=== PATIENT | male | born 1980 | race Two or more races ===

== ENCOUNTER 2019-12-31 17:30 | Inpatient (IN) | payer MEDICAID ==
[~2019-12-31] VITALS: Ht 177.8 cm; Wt 125.9 kg
--- NOTE | ~2019-12-31 | OP ---
PATIENT NAME: SOCORRO CHRISTENSEN MEDICAL RECORD: [id number] :78 LOCATION:[facility]1215 ADMISSION DATE:12/31/19 SURGEON: IRWIN HAAS MD DATE OF OPERATION: 01/08/2020 PREOPERATIVE DIAGNOSES: 1. Jaundice. 2. Gallstone pancreatitis. 3. Diabetes mellitus. POSTOPERATIVE DIAGNOSES: 1. Jaundice. 2. Gallstone pancreatitis. 3. Diabetes mellitus. PROCEDURES: 1. Laparoscopic cholecystectomy with intraoperative cholangiogram. 2. Fluoroscopic interpretation. SURGEON: Irwin Haas MD REPORT OF PROCEDURE: The patient's abdomen was prepped and draped in sterile fashion. A cutdown was made on the superior aspect of the umbilicus, 0 Vicryls were placed in the fascia bilaterally and the fascia was incised with 15-blade. I then bluntly entered the peritoneal cavity and placed a 12-mm Octavia port. Under direct visualization, a 5 mm trocar was placed in the epigastrium and 2 more 5-mm trocars were placed in the right subcostal region. The gallbladder was grasped and elevated. It was noted to be inflamed and swollen, so a needle was placed into the gallbladder to take out some of its contents. There was bilious return of fluid. This took down the pressure on the gallbladder and made it more easily graspable. The cystic artery and cystic duct were dissected free. The cystic artery was clipped proximally and distally and ligated in standard fashion. The cystic duct was then dissected free and we were able to place clips proximally times 2 and made a small cystotomy. There was return of some bilious fluid. We then inserted a cook cholangiocath through the abdominal wall and into the distal aspect of the cystic duct. A cholangiogram was performed and it showed what appeared to be 2 small filling defects in the distal common bile duct. I could not get flow of contrast into the duodenum. There was good backfilling of the ducts into the liver and all of the ductal system appeared to be small in caliber with no sign of any dilatation. We then pulled out the cholangiocatheter and upon doing this, 2 stones came out of the cystotomy. I then manipulated the tissues around her some more and got some more of the contrast and fluid out of the cystic duct with no other stones were noted. We then clipped the cystic duct 3 times distally and ligated in standard fashion. There was another arterial branch, which was clipped and cut. The gallbladder was then taken off the liver bed using electrocautery and placed into an Endo Catch bag. The right upper quadrant was irrigated out and care was taken to assure there was no sign of any bleeding or bile leakage. At this point, the ports and insufflation were then removed and the gallbladder was taken out through the umbilicus. The umbilical fascia was closed with interrupted 0 Vicryls times 3. The wounds were then irrigated out with normal saline and infused with 10 mL of 0.25% Marcaine with epinephrine. The skin incisions were all closed with subcutaneous 5-0 Monocryl and dressed appropriately. OPERATIVE REPORT [id number] SOCORRO CHRISTENSEN COMPLICATIONS: None. CONDITION: Stable. ANESTHESIA: General endotracheal and local. BLOOD LOSS: 30 mL. TRANSINT:[id number] Voice Confirmation ID: [id number] DOCUMENT ID: [id number] IRWIN HAAS MD CC: [id number] DICTATION DATE: 01/08/20913 FLARE STITCHER: 01/08/20 1120 ADM IN [place] [id number] [place] [address]
[2019-12-31 18:25] LABS: BASOPHILS 0.1 % (0-2); EOSINOPHILS 0.1 % (0-7); HEMATOCRIT 47.2 % (42.0-54.0); HEMOGLOBIN 18.2 g/dL (13.5-17.5); IMMATURE GRANULOCYTES 0.6 % (0-5); LYMPHOCYTES 10.5 % (15-50); MCHC 38.6 g/dL (31.0-37.0); MEAN PLATELET VOLUME 9.6 fL (7.4-10.4); MONOCYTES 6.8 % (2-11); NEUTROPHILS 81.9 % (40-80); PLATELET COUNT 349 10x3/uL (130-400); RBC 5.69 10x6/uL (4.20-6.10); RDW 13.5 % (11.5-14.5); WBC 17.2 10x3/uL (4.8-10.8)
[2019-12-31 19:07] LABS: APPEARANCE CLEAR (CLEAR); COLOR YELLOW (YELLOW)
[2019-12-31 19:08] LABS: BILIRUBIN NEGATIVE (NEGATIVE); GLUCOSE 1000 mg/dL (NEGATIVE); KETONE LARGE mg/dL (NEGATIVE); NITRITE NEGATIVE (NEGATIVE); PROTEIN 1+ mg/dL (NEGATIVE); UROBILINOGEN NORMAL (NORMAL)
[2019-12-31 19:09] LABS: BACTERIA FEW /hpf (NEGATIVE); RED CELLS - URINE 0-5 /hpf (0-5); WHITE CELLS - URINE OCC /hpf (NEGATIVE)
[2019-12-31 19:10] LABS: YEAST RARE /hpf (NONE SEEN)
[2019-12-31 19:18] LABS: CALC OSMOLALITY 289 mosm/kg (275-300); CREATININE - SERUM 0.8 mg/dL (0.6-1.3); GLUCOSE 376 mg/dL (74-106); LIPASE 10297 U/L (73-393); SODIUM 138 mmol/L (136-145); UREA NITROGEN 11 mg/dL (7-18); eGFR NON AFRICAN AMERICAN > 90 mL/min (90-120)
[2019-12-31 19:19] LABS: ALKALINE PHOSPHATASE 137 U/L (30-120); ALT (SGPT) 46 U/L (10-68); CARBON DIOXIDE 29.5 mmol/L (21.0-32.0); CHLORIDE - SERUM 97 mmol/L (98-107)
[2019-12-31 19:20] LABS: ALBUMIN 3.6 g/dL (3.4-5.0); BILIRUBIN - TOTAL 0.53 mg/dL (0.2-1.3); PROTEIN - SERUM 6.6 g/dL (6.4-8.2)
[2019-12-31 19:23] LABS: AMYLASE - SERUM 1349 U/L (25-115)
[2019-12-31 19:24] LABS: CALCIUM 6.7 mg/dL (8.5-10.1)
--- NOTE | 2019-12-31 21:32 | NUR ---
PT CHANGED INTO GOWN AT THIS TIME.
[2019-12-31 21:54] VITALS: BP 106/6
[2019-12-31 22:30] VITALS: BP 111/71
[2019-12-31 22:39] LABS: APTT 28.4 SECONDS (22.8-39.4); INR 0.92 (0.85-1.17); PROTIME 12.3 SECONDS (11.6-15.0)
[2019-12-31 23:29] LABS: HEMATOCRIT 48.6 % (42.0-54.0); HEMOGLOBIN 17.6 g/dL (13.5-17.5); MCH 29.6 pg (26.0-34.0); MCHC 36.2 g/dL (31.0-37.0); MCV 81.8 fL (80.0-100.0); MEAN PLATELET VOLUME 9.1 fL (7.4-10.4); RBC 5.94 10x6/uL (4.20-6.10); WBC 13.6 10x3/uL (4.8-10.8)
--- NOTE | 2019-12-31 23:42 | NUR ---
SODA AND JELLO PROVIDED AT THIS TIME. NO SIGNS DISTRESS. PT DENIES FURTHER NEEDS. WILL CONTINUE TO MONITOR.
[2020-01-01] VITALS (9 sets, daily range): BP systolic 113–142; BP diastolic 42–83; Ht 177.8 cm; Wt 125.9 kg
--- NOTE | 2020-01-01 00:26 | NUR ---
ARIVES VIA STRETCHER WITH INTERPRITUR HEPRIN GTT HAS BEEN STARTED IN ER 2BOLUS OF FLUIDS IS GOING BED LOW AND SRX2 CALL LIGHT WITH PT
--- NOTE | 2020-01-01 01:01 | NUR ---
NOTED ORDERS PT REFUSED SCD AND PT DOES NOT MEET CRITERIA FOR WAGONER CATH PT IS AMBLITORY
--- NOTE | 2020-01-01 07:24 | NUR ---
APTT REDRAW WAS NOT ORDERED AND WAS DUE AT 0540. ORDERED APTT FOR NOW. WILL CHANGE HEPARIN DRIP ACCORDING TO RESULTS. CALLED AND SPOKE WITH LAB TO SEE IF THEY CAN ADD APTT TO MORNING LABS THAT WERE DRAWN AND THEY TSTAED THEY COULD. WILL AWAIT RESULTS.
--- NOTE | 2020-01-01 08:01 | NUR ---
PT GOT UP TO BATHROOM AND HR JUMPED TO 160.
--- NOTE | 2020-01-01 08:26 | NUR ---
APTT 45.3. INCREASED HEPARIN DRIP BY 100 UNITS PER HEPARIN FLOWSHEET. HEPARIN NOW INFUSING AT 1400UNITS/HR. WILL ORDER APTT RDRAW FOR IN 6 HOURS.
--- NOTE | 2020-01-01 08:26 | NUR ---
APTT 45.3. INCREASED HEPARIN DRIP BY 100 UNITS PER HEPARIN FLOWSHEET. HEPARIN NOW INFUSING AT 1400UNITS/HR. WILL ORDER APTT RDRAW FOR IN 6 HOURS.
[2020-01-01 09:56] LABS: MAGNESIUM - SERUM 1.7 mg/dL (1.8-2.4)
[2020-01-01 09:57] LABS: CALC OSMOLALITY 295 mosm/kg (275-300); CREATININE - SERUM 0.8 mg/dL (0.6-1.3); PHOSPHOROUS 2.6 mg/dL (2.5-4.9); SODIUM 136 mmol/L (136-145); UREA NITROGEN 10 mg/dL (7-18); eGFR NON AFRICAN AMERICAN > 90 mL/min (90-120)
[2020-01-01 09:58] LABS: CARBON DIOXIDE 15.6 mmol/L (21.0-32.0); CHLORIDE - SERUM 102 mmol/L (98-107); POTASSIUM - SERUM 4.2 mmol/L (3.5-5.1)
[2020-01-01 09:59] LABS: ALBUMIN 2.8 g/dL (3.4-5.0); ALKALINE PHOSPHATASE 102 U/L (30-120); ALT (SGPT) 32 U/L (10-68); CHOL - HDL RATIO 12.4 ratio (2.3-4.9); CHOLESTEROL, TOTAL 448 mg/dL (0-200); HDL CHOLESTEROL 36 mg/dL (32-96); PROTEIN - SERUM 5.8 g/dL (6.4-8.2); TRIGLYCERIDE 4621 mg/dL (30-200)
[2020-01-01 10:07] LABS: CALCIUM 5.4 mg/dL (8.5-10.1); GLUCOSE 557 mg/dL (74-106); LIPASE 7566 U/L (73-393)
--- NOTE | 2020-01-01 10:14 | NUR ---
SPOKE WITH JOEL MARTINEZ ABOUT PT'S BS BEING SO HIGH AND BEING ON A LOW SLIDING SCALE SHE STATES TO INCREASE TO INTERMEDIATE. I ALSO STATED TO HER PT IS SINUS TACH ON THE MONITOR AND SHOT UP TO 160. SHE VERBALIZED UNDERSTANDING.
[2020-01-01 11:34] LABS: BASOPHILS 0.1 % (0-2); EOSINOPHILS 0 % (0-7); HEMATOCRIT 50.8 % (42.0-54.0); IMMATURE GRANULOCYTES 0.4 % (0-5); LYMPHOCYTES 17.4 % (15-50); MCV 83.1 fL (80.0-100.0); MEAN PLATELET VOLUME 10.8 fL (7.4-10.4); MONOCYTES 4.5 % (2-11); NEUTROPHILS 77.6 % (40-80); PLATELET COUNT 379 10x3/uL (130-400); RBC 6.11 10x6/uL (4.20-6.10); RDW 14.7 % (11.5-14.5); WBC 11.2 10x3/uL (4.8-10.8)
[2020-01-01 11:36] LABS: HEMOGLOBIN 16.6 g/dL (13.5-17.5); MCH 27.1 pg (26.0-34.0); MCHC 32.6 g/dL (31.0-37.0)
--- NOTE | 2020-01-01 13:37 | NUR ---
CALLED AND SPOKE WITH PHARMACY THEY STATE CALCIUM CHLORIDE THEY WILL HAVE TO MIX AND THEY WILL GET IT UP TO ME WHEN THEY GET IT READY. I VERBALIZED UNDERSTANDING.
--- NOTE | 2020-01-01 14:01 | NUR ---
[employer] DIABETIC SELF MANAGEMENT BOOKLET GIVEN TO PT BY TUCK POINTER HELPER.
--- NOTE | 2020-01-01 14:11 | NUR ---
PT HAD LUNCH AND IS NOT NPO. WILL DO EARLY AM. PLEASE HOLD PT NPO AFTER MIDNIGHT. LISE LIVE
[2020-01-01 14:49] LABS: APTT 39.6 SECONDS (22.8-39.4)
[2020-01-01 14:50] LABS: D-DIMER-QUANTITATIVE 2.22 ug/mLFEU (0.20-0.54)
--- NOTE | 2020-01-01 15:15 | NUR ---
APTT 39.6. PER HEPARIN FLOWSHEET GAVE 3000 UNITS BOLUS OF HEPARIN AND INCREASED 200 UNITS/HR. HERPAIN DRIP NOW INFUSING AT 1600 UNITS/HR. PT LYING IN BED. RESTING QUIETLY. FAMILY AT BEDSIDE. PT HAS NO FURTHER NEEDS AT THIS TIME. BED LOW. CL IN REACH. WILL CONTINUE TO MONITOR.
--- NOTE | 2020-01-01 15:51 | NUR ---
DR. HAAS STATES PT IS TO REMAIN NPO BUT CAN HAVE ICE CHIPS. I VERBALIZED UNDERSTANDING NAD STATED THIS TO PT'S SON WHO TRASNLATED TO PT. PT AND PT'S SON VERBALIZED UNDERSTANDING.
--- NOTE | 2020-01-01 16:16 | NUR ---
I have reviewed this patient and I concur with the Shift Assessment completed by the Licensed Practical Nurse today this shift.
[2020-01-01 18:03] LABS: TROPONIN-I 0.036 ng/mL (0.000-0.060)
[2020-01-01 18:04] LABS: CKMB 15.6 U/L (0.0-3.6); CREATINE KINASE 59 UL (21-232)
--- NOTE | 2020-01-01 19:47 | NUR ---
REPORT RECIEVED AND ROUNDING COMPLETE. PATIENT LAYING FLAT ON LEFT SIDE, SONS IN THE ROOM. PATIENT DOES NOT SPEAK SERBIAN, PATIENT HAS SONS IN ROOM FOR COMMUNICATION. JANEEN UNDERSTANDS HE IS TO BE NPO AFTER MIDNIGHT FOR ABD ULTRASOUND IN THE MORNING. PATIENT HAS A LEFT AC WITH FLUIDS RUNNING AT THIS TIME. PIV SHOWS NO S/SX OF INFILTRATION. PATINET SHOWS NO S/SX OF DISTRESS AT THIS TIME. CALL LIGHT WIHTIN REACH AND BED IN LOWEST LOCKED POSITION.
[2020-01-01 20:35] LABS: CHLORIDE - SERUM 103 mmol/L (98-107); POTASSIUM - SERUM 4.1 mmol/L (3.5-5.1); SODIUM 134 mmol/L (136-145); eGFR NON AFRICAN AMERICAN 88 mL/min (90-120)
[2020-01-01 20:37] LABS: CALC OSMOLALITY 290 mosm/kg (275-300); CALCIUM 7.1 mg/dL (8.5-10.1); CARBON DIOXIDE 20.7 mmol/L (21.0-32.0); GLUCOSE 496 mg/dL (74-106); UREA NITROGEN 14 mg/dL (7-18)
[2020-01-01 20:44] LABS: CKMB 0.1 U/L (0.0-3.6); CREATINE KINASE 109 UL (21-232)
[2020-01-01 20:45] LABS: TROPONIN-I < 0.017 ng/mL (0.000-0.060)
[2020-01-01 20:49] LABS: KETONE - SERUM NEGATIVE (NEGATIVE)
--- NOTE | 2020-01-01 21:55 | NUR ---
PT RECIEVED VIA BED, AMBULATES TO BED WITHOUT ASSIST, SPEAKS ETHIOPIAN, FRIEND PRESENT TO TRANSLATE, ASSESSMENT COMPLETED
--- NOTE | 2020-01-01 22:05 | NUR ---
IV STARTED IN RIGHT FOREARM, INITIATED INSULIN GTT
[2020-01-02] VITALS (24 sets, daily range): BP systolic 101–131; BP diastolic 56–79
--- NOTE | 2020-01-02 00:10 | NUR ---
PT SLEEPING, REMAINS TACHYCARDIC AND TACHYPNIC, WILL CONT TO MONITOR, FSBS Q1HR
--- NOTE | 2020-01-02 02:00 | NUR ---
PT SLEEPING WITH NO CHANGE IN STATUS, BLOOD DRAWN BY LAB
[2020-01-02 02:42] LABS: CALC OSMOLALITY 288 mosm/kg (275-300); CALCIUM 7.3 mg/dL (8.5-10.1); CARBON DIOXIDE 20.4 mmol/L (21.0-32.0); CHLORIDE - SERUM 108 mmol/L (98-107); CKMB 0.3 U/L (0.0-3.6); CREATINE KINASE 55 UL (21-232); CREATININE - SERUM 1.1 mg/dL (0.6-1.3); GLUCOSE 314 mg/dL (74-106); MAGNESIUM - SERUM 2.4 mg/dL (1.8-2.4); POTASSIUM - SERUM 3.5 mmol/L (3.5-5.1); SODIUM 138 mmol/L (136-145); TROPONIN-I < 0.017 ng/mL (0.000-0.060); UREA NITROGEN 15 mg/dL (7-18); eGFR NON AFRICAN AMERICAN 79 mL/min (90-120)
--- NOTE | 2020-01-02 05:30 | NUR ---
PT UP TO BATHROOM WITH MIN ASSIST, BM X1, REMAINS TACHYCARDIC, SON PRESENT IN ROOM
[2020-01-02 06:01] LABS: BASOPHILS 0.1 % (0-2); EOSINOPHILS 0.2 % (0-7); HEMATOCRIT 47.2 % (42.0-54.0); HEMOGLOBIN 16.1 g/dL (13.5-17.5); IMMATURE GRANULOCYTES 0.5 % (0-5); LYMPHOCYTES 33.9 % (15-50); MCH 28.4 pg (26.0-34.0); MCHC 34.1 g/dL (31.0-37.0); MCV 83.4 fL (80.0-100.0); MEAN PLATELET VOLUME 9.7 fL (7.4-10.4); MONOCYTES 4.2 % (2-11); NEUTROPHILS 61.1 % (40-80); RBC 5.66 10x6/uL (4.20-6.10); RDW 14.8 % (11.5-14.5); WBC 8.8 10x3/uL (4.8-10.8)
[2020-01-02 06:17] LABS: PLATELET COUNT 287 10x3/uL (130-400)
[2020-01-02 06:22] LABS: ANION GAP 12.1 mmol/L (8-16); BILIRUBIN - TOTAL 0.79 mg/dL (0.2-1.3); CALCIUM 7.7 mg/dL (8.5-10.1); CARBON DIOXIDE 21.5 mmol/L (21.0-32.0); CREATININE - SERUM 1.2 mg/dL (0.6-1.3); MAGNESIUM - SERUM 2.6 mg/dL (1.8-2.4); POTASSIUM - SERUM 3.6 mmol/L (3.5-5.1); PROTEIN - SERUM 6.6 g/dL (6.4-8.2)
[2020-01-02 06:23] LABS: ALBUMIN 2.2 g/dL (3.4-5.0); PHOSPHOROUS 1.9 mg/dL (2.5-4.9)
--- NOTE | 2020-01-02 07:54 | NUR ---
PT RESTING QUIETLY, DOMINICAN SPEAKING SON AT BS. INSULIN GTT PER SSI. HEP GTT PER SS HEP.
--- NOTE | 2020-01-02 11:13 | NUR ---
DR HAAS HERE ON ROUNDS.
[2020-01-02 14:27] LABS: CALC OSMOLALITY 290 mosm/kg (275-300); CALCIUM 7.3 mg/dL (8.5-10.1); CARBON DIOXIDE 22.7 mmol/L (21.0-32.0); CHLORIDE - SERUM 110 mmol/L (98-107); CREATININE - SERUM 1.1 mg/dL (0.6-1.3); GLUCOSE 164 mg/dL (74-106); MAGNESIUM - SERUM 2.3 mg/dL (1.8-2.4); POTASSIUM - SERUM 3.4 mmol/L (3.5-5.1); SODIUM 143 mmol/L (136-145); UREA NITROGEN 18 mg/dL (7-18); eGFR NON AFRICAN AMERICAN 79 mL/min (90-120)
--- NOTE | 2020-01-02 18:16 | NUR ---
DKA INSULIN ADJUSTMENT PROTOCOL FLOWSHEET ON HARD CHART.
--- NOTE | 2020-01-02 19:30 | NUR ---
PT UP TO BATHROOM WITH MIN ASSIST, HAVING DIARRHEA, SON PRESENT IN ROOM RENEWABLE ENERGY TECHNICIAN, REMAINS TACHYCARDIC, LEFT AND RIGHT PIV'S INTACT WITH IVF'S INFUSING, FSBS Q1HR, WILL CONT TO MONITOR
--- NOTE | 2020-01-02 21:10 | NUR ---
PT AWAKE, VISITORS PRESENT IN ROOM, VITALS STABLE, REMAINS TACHYCARDIC, WILL CONT TO MONITOR
--- NOTE | 2020-01-02 23:10 | NUR ---
PT RESTING QUIETLY WITH EYES CLOSED, VITALS STABLE
[2020-01-03] VITALS (24 sets, daily range): BP systolic 108–142; BP diastolic 41–87
--- NOTE | 2020-01-03 03:00 | NUR ---
PT SLEEPING, SON PRESENT IN ROOM, VITALS STABLE, NO DISTRESS NOTED
--- NOTE | 2020-01-03 05:19 | NUR ---
PT SLEEPING, NO CHANGES NOTED FROM ASSESSMENT, HR DECREASING FROM TACHY, FSBS 102, REMAINS ON INSULIN GTT
[2020-01-03 06:30] LABS: KETONE - SERUM NEGATIVE (NEGATIVE)
[2020-01-03 06:50] LABS: ALBUMIN 2.1 g/dL (3.4-5.0); ALKALINE PHOSPHATASE 81 U/L (30-120); ALT (SGPT) 30 U/L (10-68); AMYLASE - SERUM 108 U/L (25-115); BILIRUBIN - TOTAL 2.17 mg/dL (0.2-1.3); CALC OSMOLALITY 278 mosm/kg (275-300); CALCIUM 7.9 mg/dL (8.5-10.1); CARBON DIOXIDE 21.9 mmol/L (21.0-32.0); CHLORIDE - SERUM 108 mmol/L (98-107); CREATININE - SERUM 0.7 mg/dL (0.6-1.3); GLUCOSE 104 mg/dL (74-106); LIPASE 1021 U/L (73-393); MAGNESIUM - SERUM 2.3 mg/dL (1.8-2.4); PHOSPHOROUS 1.7 mg/dL (2.5-4.9); POTASSIUM - SERUM 3.6 mmol/L (3.5-5.1); PROTEIN - SERUM 6.1 g/dL (6.4-8.2); SODIUM 139 mmol/L (136-145); UREA NITROGEN 14 mg/dL (7-18); eGFR NON AFRICAN AMERICAN > 90 mL/min (90-120)
[2020-01-03 07:01] LABS: BASOPHILS 0.2 % (0-2); EOSINOPHILS 0.7 % (0-7); HEMATOCRIT 37.9 % (42.0-54.0); IMMATURE GRANULOCYTES 1.2 % (0-5); LYMPHOCYTES 26.4 % (15-50); MCH 27.6 pg (26.0-34.0); MCHC 32.7 g/dL (31.0-37.0); MCV 84.2 fL (80.0-100.0); MEAN PLATELET VOLUME 9.8 fL (7.4-10.4); MONOCYTES 5.7 % (2-11); NEUTROPHILS 65.8 % (40-80); PLATELET COUNT 242 10x3/uL (130-400); RDW 15.2 % (11.5-14.5); WBC 8.5 10x3/uL (4.8-10.8)
[2020-01-03 07:13] LABS: HEMOGLOBIN 12.4 g/dL (13.5-17.5)
--- NOTE | 2020-01-03 07:46 | NUR ---
PT RESTING QUIETLY, VSS, INSULIN GTT INFUSING AND HEPARIN GTT INFUSING. CL TRAY GIVEN. PTS SON AT .
--- NOTE | 2020-01-03 09:02 | NUR ---
HEPARIN SS FLOWSHEET USED.
--- NOTE | 2020-01-03 12:58 | NUR ---
DR WOLFE HERE ON ROUNDS.
--- NOTE | 2020-01-03 15:18 | NUR ---
PT C/O BACK PAIN. MS GIVEN.
--- NOTE | 2020-01-03 19:00 | NUR ---
PT ASSESSMENT COMPLETED AT THIS TIME, NO CHANGES NOTED FROM NURSE REPORT, PT IS AAOX3, FAMILY AT THE BEDSIDE, PT DENIES COMPLAINTS AT THIS TIME, PT HAS INCREASED WORK OF BREATHING, LUNGS CTA BILAT. HR 118 ON CM, WILL MONITOR FOR CHANGES
--- NOTE | 2020-01-03 21:32 | NUR ---
PT RESTING WITH EYES CLOSED, RESP EVEN AND LESS EFFORT NOTED AT THIS TIME, VSS, WILL MONITOR FOR CHANGES
--- NOTE | 2020-01-03 23:00 | NUR ---
PT REASSESSMENT COMPLETED AT THIS TIME, NO CHANGES NOTED FROM PREVIOUS EXAM, VSS, WILL MONITOR FOR CHANGES
[2020-01-04] VITALS (18 sets, daily range): BP systolic 128–143; BP diastolic 78–96
--- NOTE | 2020-01-04 01:00 | NUR ---
PT AWAKEN TO NAME, PT C/O BACK PAIN AT THIS TIME, PT WAS INFORMED THAT THE NURSE WOULD CHECK AND SEE WHAT MEDICATIONS HE HAD ORDERED FOR PAIN
--- NOTE | 2020-01-04 02:48 | NUR ---
pt c/o back pain that is not better after administration of tylenol, extension specialist provider called and new orders noted
--- NOTE | 2020-01-04 05:00 | NUR ---
PT RESTING IN BED WITH EYES CLOSED, RESP EVEN, VSS
[2020-01-04 05:45] LABS: ALBUMIN 1.9 g/dL (3.4-5.0); ALKALINE PHOSPHATASE 94 U/L (30-120); CALCIUM 7.4 mg/dL (8.5-10.1); CARBON DIOXIDE 23.2 mmol/L (21.0-32.0); CHLORIDE - SERUM 104 mmol/L (98-107); CREATININE - SERUM 0.7 mg/dL (0.6-1.3); POTASSIUM - SERUM 3.6 mmol/L (3.5-5.1); PROTEIN - SERUM 5.9 g/dL (6.4-8.2); SODIUM 136 mmol/L (136-145); UREA NITROGEN 11 mg/dL (7-18); eGFR NON AFRICAN AMERICAN > 90 mL/min (90-120)
[2020-01-04 05:48] LABS: ALT (SGPT) 70 U/L (10-68); AMYLASE - SERUM 60 U/L (25-115); CALC OSMOLALITY 275 mosm/kg (275-300); GLUCOSE 189 mg/dL (74-106); LIPASE 667 U/L (73-393); MAGNESIUM - SERUM 1.7 mg/dL (1.8-2.4); PHOSPHOROUS 2.3 mg/dL (2.5-4.9)
[2020-01-04 06:34] LABS: KETONE - SERUM NEGATIVE (NEGATIVE)
[2020-01-04 06:35] LABS: HEMATOCRIT 35.2 % (42.0-54.0); HEMOGLOBIN 11.2 g/dL (13.5-17.5); MCHC 31.8 g/dL (31.0-37.0); MCV 84.8 fL (80.0-100.0); MEAN PLATELET VOLUME 9.8 fL (7.4-10.4); PLATELET COUNT 242 10x3/uL (130-400); RBC 4.15 10x6/uL (4.20-6.10); RDW 14.7 % (11.5-14.5); WBC 9.3 10x3/uL (4.8-10.8)
--- NOTE | 2020-01-04 07:00 | NUR ---
SLEEPING IN BED. AWAKES EASLY TO VERBAL STIMULI SKIN WARM AND DRY. IV LEFT AC INFUSING WITH NS AT 125 ML HOUR. NO REDNESS OR SWELLING NOTED. RIGHT FOREARM IV SALINE LOCK. AMBULATING TO BATHROOM NO DISTRESS. MONITOR ST.
--- NOTE | 2020-01-04 08:15 | NUR ---
CLEAR LIQUID DIET SERVED. PATIENT UP IN CHAIR AT BEDSIDE. ATE JELLO AND JUICE. OFFERED MORE JELLO DECLINED. FAMILY IN ROOM TO TRANSLATE
[2020-01-04 09:16] LABS: BILIRUBIN - DIRECT 4.6 mg/dL (0.00-0.30)
--- NOTE | 2020-01-04 09:30 | NUR ---
PATIENT IN BED SLEEPING. SKIN WARM AND DRY. NO DISTRESS
--- NOTE | 2020-01-04 10:00 | NUR ---
COMPLETE HIBCLENS BATH GIVEN WITH HAIR WASHING. PATIENT TOLERATED WELL.UP TO CHAIR AT BEDSIDE. LINEN CHANGED. AMBULATING IN ROOM, BACK AND FORTH TO BATHROOM WITH MINIMAL ASSISTANCES. FAMILY IN ROOM TO TRANSLATE. CAN SPEAK SIMPLE FRENCH. COOPERATIVE.
[2020-01-04 11:22] LABS: ANISOCYTOSIS OCC; CRENATED CELLS OCC; EOSINOPHILS 2 % (0-7); LYMPHOCYTES 10 % (15-50); MONOCYTES 15 % (2-11); NEUTROPHILS 61 % (40-80); PLATELET ESTIMATE NORMAL
[2020-01-04 11:24] LABS: SMUDGE CELLS 1+
--- NOTE | 2020-01-04 12:00 | NUR ---
CLEAR LIQUID LUNCH SERVED. ATE JELLO AND APPLE JUICE. DR. WOLFE HERE ORDERS FOR TRANSFER TO FLOOR RECEIVED.
--- NOTE | 2020-01-04 12:09 | EC ---
PATIENT:SOCORRO CHRISTENSEN DATE OF SERVICE: 12/31/19 SEX: M MEDICAL RECORD: [id number] DATE OF : [birth year] LOCATION:[place] [address] AGE OF PATIENT: 39 ADMISSION DATE: 12/31/19 REFERRING PHYSICIAN: INTERPRETING PHYSICIAN: JANEL HILL MD ECHOCARDIOGRAM REPORT ECHO CHARGES 4 ECHO COMPLETE Date: 01/01/20 CLINICAL DIAGNOSIS: DYSPNEA ECHOCARDIOGRAPHIC MEASUREMENTS (adult normal given) AC root (d.<3.7cm) 2.8 cm LV Septum d (<1.2 cm> 0.7 cm Valve Excursion 1.5 cm LV Septum (systole) 1.3 cm Left Atria (s.<4.0cm> 3.2 cm LVPW d(<1.2cm) 1.2 cm RV (d.<2.3cm) 2.9 cm LVPW (sytole) 1.3 cm LV diastole(<5.6CM) 6.3 cm MV E-F(>70mm/sec) cm LV systole 4.8 cm LVOT Diameter 1.9 cm MV exc.(>10mm) cm Est.ejection fraction (50-75%) % DOPPLER: LVIT cm/sec A 67 cm/sec E 38 cm/sec LA cm/sec RVSP 31.4 mmHg LVOT 96 cm/sec AOP1/2T m/s Asc. Ao 143 cm/sec RVOT 114 cm/sec RA cm/sec PA 102 cm/sec AV Gradient Peak 8.2 mmHg AV Mean 3.1 mmHg AV Area 1.9 cm MV Gradient Peak 4.0 mmHg MV Mean 2.1 mmHg MV Area cm COMMENTS: Cigar Packer And Picker: Tree [employer] Insurance Claims Representative: [address] Dr. [address] TAPE# PACS Pericardial Effusion N DATE OF SERVICE: 01/01/2020 FINDINGS: 1. Left ventricular chamber size is within normal limits. Left ventricular systolic function is mildly depressed at 45%. 2. Left atrium, right atrium, and right ventricular chamber sizes are within normal limits. 3. Valvular structures have normal structure and motion. 4. Doppler interrogation reveals no significant valvular insufficiency or stenosis and pulmonary systolic pressure is estimated at 31 mmHg. ECHOCARDIOGRAM REPORT [id number] SOCORRO CHRISTENSEN 5. No evidence of pericardial effusion or left ventricular thrombus. TRANSINT:[id number] Voice Confirmation ID: [id number] DOCUMENT ID: [id number] JANEL HILL MD at 1209 CC: [id number] DICTATION DATE: 01/01/20 1558 PANTS BUSHELER: 01/02/20 0005 ADM IN [facility] [address] [place] [id number]
--- NOTE | 2020-01-04 13:32 | NUR ---
Nutrition Follow-up: Had jello and juice this AM. Remains on clear liquid diet. Wt: 239.2# (01/03); 250# (admit - stated) Last BM: 01/04 Labs noted: Glu 189, Ca 7.4, PO4 2.3, Mg 1.7, Alb 1.9, Lipase 667 Meds noted: Humulin, Neutra-Phos, MagOx, NS @ 125 -Rec ADAT as medically feasible; if unable to advance diet soon, rec may consider Procalamine. -Monitor wt. -RD following.
--- NOTE | 2020-01-04 14:00 | NUR ---
RESTING IN BED NO DISTRESS.
--- NOTE | 2020-01-04 14:16 | MORECARE ---
CASE MANAGEMENT DISCHARGE SUMMARY PATIENT: SOCORRO CHRISTENSEN UNIT: [id number] ADM DATE: 12/31/19 AGE: 39 : [birth year] SEX: M ROOM/BED: [facility] AUTHOR: BLAIR ROME PHYSICIAN: REFERRING PHYSICIAN: SHAWN CALVIN MD DATE OF SERVICE: 01/04/20 Discharge Plan Patient Name: SOCORRO CHRISTENSEN Facility: [facility]:[place] : 1980 Planned Disposition: Home Anticipated Discharge Date: Discharge Date: Expected LOS: Initial Reviewer: [email or web address] Initial Review Date: 01/04/2020 Generated: 01/04/20 3:15 pm Patient Name: SOCORRO CHRISTENSEN Page [id number] at 1416 All edits/amendments must be made on the electronic document DICTATION DATE: 01/04/20 1415 SHIP/REC/DOC CONTROL: HAM 01/04/20 1415 RPT#: [id number] DC DATE: STATUS: ADM IN [facility] [address] [place] [address] END OF REPORT
--- NOTE | 2020-01-04 14:24 | MORECARE ---
CASE MANAGEMENT DISCHARGE SUMMARY PATIENT: SOCORRO CHRISTENSEN UNIT: [id number] ADM DATE: 12/31/19 AGE: 39 : 79 SEX: M ROOM/BED: [facility] AUTHOR: BLAIR ROME PHYSICIAN: REFERRING PHYSICIAN: SHAWN CALVIN MD DATE OF SERVICE: 01/04/20 Discharge Plan Patient Name: SOCORRO CHRISTENSEN Facility: [facility]:[place] : 1980 Planned Disposition: Home Anticipated Discharge Date: Discharge Date: Expected LOS: Initial Reviewer: [email or web address] Initial Review Date: 01/04/2020 Generated: 01/04/20 3:24 pm Comments DCP- Discharge Planning Updated by [email or web address]: Fern Teresa on 01/04/20 1:[address] Patient Name: SOCORRO CHRISTENSEN Admission Status: ER Accout number: [id number] Admission Date: 12-31-2019 : 1980 Admission Diagnosis: Attending: SHAWN HASSAN Current LOS: 4 Anticipated DC Date: Planned Disposition: Home Primary Insurance: UNINSURED DISCOUNT PLAN Discharge Planning Comments: CM MET WITH PATIENT AFTER OBTAINING VERBAL CONSENT. PATIENT SPEAKS VERY LITTLE UPPER SORBIAN, SON IS AT THE BEDSIDE AND CAN TRANSLATE. PATIENT PLANS TO DC TO HOME WITH FAMILY WHEN MEDICALLY STABLE. WAITING FOR TRANSFER TO THE FLOOR. I LEFT MS WITH MED DATA TO HELP GET PATIENT MEDICAID. CM TO FOLLOW AND ASSIST. I AM GIVING THE SON AN EXCUSE FOR SCHOOL. Machine Brush Maker: Fern Teresa DCPIA - Discharge Planning Initial Assessment Updated by [email or web address]: Fern Teresa on 01/04/20 2:16 pm * Is the patient Alert and Oriented? Yes * PCP [facility] * Pharmacy [facility] * Preadmission Environment Home with Family * ADLs Independent * Additional services required to return to the preadmission environment? No * Can the patient safely return to the preadmission environment? Yes * Has this patient been hospitalized within the prior 30 days at any hospital? No Last DP export: 01/04/20 1:16 p Patient Name: SOCORRO CHRISTENSEN Page [phone] at 1424 All edits/amendments must be made on the electronic document DICTATION DATE: 01/04/201423 USED CAR LOT PORTER: HAM 01/04/201423 RPT#: [id number] DC DATE: STATUS: ADM IN [facility] [address] [place] [address] END OF REPORT
--- NOTE | 2020-01-04 14:37 | NUR ---
DR. HAAS HERE. TALKED WITH PATIENT AND FAMILY
--- NOTE | 2020-01-04 15:07 | NUR ---
PATIENT TO MRI PER WHEELCHAIR, SON WITH HIM.
[2020-01-04 16:11] LABS: PATH REVIEW PERIPHERAL SMEAR REVIEWED
--- NOTE | 2020-01-04 19:00 | NUR ---
PT ASSESSMENT COMPLETED AT THIS TIME, NO CHANGES NOTED FROM NURSE REPORT, PT AAOX4, PT ADVISED THAT HIS BACK IS HURTING AND RATES THE PAIN 6/10. VSS, NO DISTRESS NOTED, WILL MONITOR FOR CHANGES
--- NOTE | 2020-01-04 21:19 | NUR ---
PT ADVISED THAT HIS BACK PAIN WILL STILL HURTING AND THE PAIN PILL HAS NOT HELPED. PAGED ON-CALL
--- NOTE | 2020-01-04 21:25 | NUR ---
RERE LACKEY CALLED BACK AND NEW ORDERS NOTED
--- NOTE | 2020-01-04 23:00 | NUR ---
PT RESTING WITH EYES CLOSED, RESP EVEN AND NON-LABORED, NO DISTRESS NOTED, VSS, WILL MONITOR FOR CHANGES
[2020-01-05] VITALS (14 sets, daily range): BP systolic 120–138; BP diastolic 71–98
--- NOTE | 2020-01-05 01:00 | NUR ---
PT RESTING WITH EYES CLSOED, RESP EVEN AND NON-LABORED
--- NOTE | 2020-01-05 03:00 | NUR ---
PT RESTING WITH EYES CLOSED, RESP EVEN AND NON-LABORED, VSS AT THIS TIME
[2020-01-05 04:51] LABS: ALKALINE PHOSPHATASE 117 U/L (30-120); AMYLASE - SERUM 49 U/L (25-115); CALCIUM 7.5 mg/dL (8.5-10.1); CARBON DIOXIDE 26.6 mmol/L (21.0-32.0); CHLORIDE - SERUM 99 mmol/L (98-107); CREATININE - SERUM 0.6 mg/dL (0.6-1.3); GLUCOSE 194 mg/dL (74-106); PHOSPHOROUS 2.1 mg/dL (2.5-4.9); POTASSIUM - SERUM 3.1 mmol/L (3.5-5.1); PROTEIN - SERUM 5.9 g/dL (6.4-8.2); SODIUM 134 mmol/L (136-145); eGFR NON AFRICAN AMERICAN > 90 mL/min (90-120)
[2020-01-05 04:55] LABS: ALT (SGPT) 150 U/L (10-68); CALC OSMOLALITY 270 mosm/kg (275-300); LIPASE 497 U/L (73-393); MAGNESIUM - SERUM 1.9 mg/dL (1.8-2.4); UREA NITROGEN 7 mg/dL (7-18)
[2020-01-05 04:58] LABS: BASOPHILS 1.1 % (0-2); EOSINOPHILS 0.5 % (0-7); HEMATOCRIT 33.2 % (42.0-54.0); LYMPHOCYTES 13.7 % (15-50); MCH 27.4 pg (26.0-34.0); MCHC 33.1 g/dL (31.0-37.0); MEAN PLATELET VOLUME 8.9 fL (7.4-10.4); MONOCYTES 8.1 % (2-11); NEUTROPHILS 59.6 % (40-80); PLATELET COUNT 236 10x3/uL (130-400); RBC 4.01 10x6/uL (4.20-6.10); RDW 14.6 % (11.5-14.5); WBC 10.1 10x3/uL (4.8-10.8)
[2020-01-05 04:59] LABS: MCV 82.8 fL (80.0-100.0)
--- NOTE | 2020-01-05 05:00 | NUR ---
PT RESTING WITH EYES CLOSED, RESP EVEN AND NON LABORED, NO DISTRESS NOTED
--- NOTE | 2020-01-05 10:20 | NUR ---
PT AWAKE AND ALERT-SON AT [facility]-DR WOLFE AT BEDSIDE-ADDRESSED SON WITH PROBABLE [id number] ADDRESSED PT WITH INTERPRETATION-
--- NOTE | 2020-01-05 11:30 | NUR ---
RECEVIED REPORT FROM JUAN C DAVIS AND ASSUMED CARE OF PATIENT. PATIENT RESTING QUIETLY, EASILY AROUSED BY VOICE, SON AT BEDSIDE. VSS. IV INFUSING NS AT 125 ML/HR AND K-PHOS AT 63 ML/HR. C/O PAIN TO ABDOMEN RATES 2/10.
--- NOTE | 2020-01-05 12:59 | NUR ---
IV 20 STARTED TO LEFT WRIST, POSITIVE BLOOD RETURN AND FLUSHES EASILY X 1 ATTEMPT. PROCAL INITIATED AT 50 ML/HR.
--- NOTE | 2020-01-05 15:20 | NUR ---
PATIENT C/O BACK PAIN RATES 5/10. PRN MEDS GIVEN.
--- NOTE | 2020-01-05 15:39 | NUR ---
DR. FIORE AT ROOM UPDATED AND EXAMINES PATIENT. NO NEW ORDERS RECEIVED.
--- NOTE | 2020-01-05 16:53 | NUR ---
DR. WESLEY AT ROOM, UPDATED AND EXAMINES PATIENT. GIVEN FULL LIQUID DINNER TRAY AND INSULIN PER SLIDING SCALE. VSS. LAB AT ROOM AND DRAWS REPEAT POTASSIUM. REPORT CALLED TO BRICE DAVIS TO TRANSFER PATIENT TO ROOM 1215 ONCE COMPLETED WITH DINNER TRAY.
--- NOTE | 2020-01-05 17:45 | NUR ---
PT RECIEVED TO ROOM VIA WHEELCHAIR AA&O X4, VSS. POC DISCUSSED W/ PT VOICED UNDERSTANDING. ASSESSMENT COMPLETE W/ NO CHANGES FROM PREVIOUSLY DOCUMENTED ASSESSMENT. PT'S SON TRANSLATED NEEDED.
--- NOTE | 2020-01-05 18:05 | NUR ---
SCD'S PLACED ON PT & STARTED AT THIS TIME.
--- NOTE | 2020-01-05 18:06 | NUR ---
POTASSIUM 3.1. 40 MEQ K TABS GIVEN PER ORDER. LEVAQUIN HUNG PER ORDER TO L A/C PIV, NO S/S OF INFILTRATION, INFUSING WITHOUT DIFFICULTY. EDUCATED ON MEDS, VERBALIZES UNDERSTANDING. SON AT BEDSIDE. BOTH VERBALIZE UNDERSTANDING AND DENY QUESTIONS.
--- NOTE | 2020-01-05 19:19 | NUR ---
PM ROUNDS MADE, PT RESTING, PT'S SON AT BEDSIDE, INFORMED PT THAT I WILL BE BACK SHORTLY TO DO ASSESSMENT, PT RATES BACK PAIN 04/03, INFORMED PT THAT I WILL BRING IN PAIN MED FOR PAIN, PT VERBALIZES UNDERSTANDING
--- NOTE | 2020-01-05 19:28 | NUR ---
UPON ENTERING ROOM, PT IS NEEDING TO GET UP TO BR, PT'S SON WILL ASSIST PT, BOTH ARE INST TO USE CALL LIGHT WHEN HE IS BACK IN BED, PT VERBALIZES UNDERSTANDING
--- NOTE | 2020-01-05 20:27 | NUR ---
PT BACK IN BED, ASSESSMENT PER FLOW SHEET, VS OBTAINED, IV IN LEFT AC INTACT WITH NO REDNESS OR EDEMA INFUSING NS VIA PUMP AT 125 ML/HR, IV IN LEFT WRIST INTACT WITH NO REDNESS OR EDEMA INFUSING PROCALAMINE AT 50ML/HR, SEE EMAR, PT REPORTS SMALL YELLOWISH BM, VOIDING WITH NO DIFFICULTY, AND PASSING FLATUS, ADM PAIN MED PER MD ORDERS FOR PAIN CONTROL, SEE EMAR, SCD'S ON AND WORKING PROPERLY, PT DENIES FURTHER NEEDS AT THIS TIME, BED IN LOW POSITION, SIDE RAILS X 2, CALL LIGHT IN REACH, FAMILY AT BEDSIDE
--- NOTE | 2020-01-05 21:15 | NUR ---
PT RESTING, RATES PAIN 12/04, INFORMED PT THAT COMPUTER WAS DOWN AT THIS TIME AND SOON IT CAME BACK UP, I WILL BE IN TO ADM THE PROTONIX, PT VERBALIZES UNDERSTANDING, DENIES NEEDS AT THIS TIME, FAMILY AT BEDSIDE
--- NOTE | 2020-01-05 22:05 | NUR ---
PT AWAKE, ADM PROTONIX SIVP PER MD ORDERS, SEE EMAR, NEW BAG OF NS HUNG INFUSING VIA PUMP AT 125 ML/HR, LAB TO ROOM FOR BLOOD DRAW, PT REQUESTED AND PROVIDED URINAL, DENIES FURTHER NEEDS OR PAIN AT THIS TIME, PT'S SON AT BEDSIDE
[2020-01-06] VITALS (11 sets, daily range): BP systolic 127–141; BP diastolic 80–96
--- NOTE | 2020-01-06 00:31 | NUR ---
PT RESTING WITH EYES CLOSED, AROUSES TO SOFT VERBAL STIMULATION, VS AND FSBS OBTAINED, C/O PAIN, ADM PAIN MED PER MD ORDERS, ADM INSULIN PER SLIDING SCALE IN RIGHT ARM, VERIFIED PER THIS RN AND MADHAVI AGUILA RN, EMPTIED 450 MLS OF DARK YELLOW URINE FROM URINAL, SCD'S CONTINUE ON AND WORKING PROPERLY, PT DENIES FURTHER NEEDS, PT'S SON AT BEDSIDE
--- NOTE | 2020-01-06 02:20 | NUR ---
PT RESTING WITH EYES CLOSED, RESP QUIET, NO DISTRESS NOTED, LEFT UNDISTURBED AT THIS TIME, SCD'S CONTINUE ON AND WORKING PROPERLY, BED IN LOW POSITION, SIDE RAILS X 2, CALL LIGHT IN REACH, PT'S SON AT BEDSIDE
--- NOTE | 2020-01-06 03:28 | NUR ---
THIS RN TO ROOM, IV BEEPING, PT HAD BENT LEFT ARM, IV IN LEFT AC INTACT WITH NO REDNESS OR EDEMA INFUSING VIA PUMP NS AT 125 ML/HR, VS OBTAINED, PT RATES PAIN 02/01, INFORMED PT THAT PAIN MED WAS NOT DUE TILL AROUND 4:30AM, PT VERBALIZES UNDERSTANDING, PUMPS CLEARED, EMPTIED 400 MLS OF DARK YELLOW URINE FROM URINAL, PT DENIES NEEDS AT THIS TIME, SCD'S CONTINUE ON AND WORKING PROPERLY, BED IN LOW POSITION, SIDE RAILS X 2, CALL LIGHT IN REACH, PT'S SON AT BEDSIDE
--- NOTE | 2020-01-06 04:30 | NUR ---
PT RESTING WITH EYES CLOSED, RESP QUIET, NO DISTRESS NOTED, LEFT UNDISTURBED AT THIS TIME, PT'S SON AT BEDSIDE
--- NOTE | 2020-01-06 06:07 | NUR ---
PT RESTING WITH EYES CLOSED, AROUSES TO SOFT VERBAL STIMULATION, OBTAINED FSBS, ADM NORCO PER MD ORDERS FOR PAIN MANAGEMENT, NEW BAG OF NS HUNG VIA PUMP INFUSING AT 125 ML/HR, INFORMED PT THAT I WILL BE BACK SHORTLY TO ADM INSULIN, PT VERBALIZES UNDERSTANDING, DENIES NEEDS AT THIS TIME
--- NOTE | 2020-01-06 06:39 | NUR ---
ADM INSULIN PER MD ORDERS, SEE EMAR, VERIFIED PER THIS RN AND ELE REYNA, RN, PT UP TO BEDSIDE SCALE FOR WEIGHT, PT BACK TO BED, SCD'S REAPPLIED AND WORKING PROPERLY, PT DENIES NEEDS AT THIS TIME, PT'S SON AT BEDSIDE
[2020-01-06 08:02] LABS: ALBUMIN 1.8 g/dL (3.4-5.0); AMYLASE - SERUM 45 U/L (25-115); CALC OSMOLALITY 266 mosm/kg (275-300); CALCIUM 7.5 mg/dL (8.5-10.1); CARBON DIOXIDE 25.7 mmol/L (21.0-32.0); CHLORIDE - SERUM 97 mmol/L (98-107); CREATININE - SERUM 0.5 mg/dL (0.6-1.3); GLUCOSE 214 mg/dL (74-106); LIPASE 408 U/L (73-393); MAGNESIUM - SERUM 1.8 mg/dL (1.8-2.4); POTASSIUM - SERUM 3.3 mmol/L (3.5-5.1); SODIUM 131 mmol/L (136-145); UREA NITROGEN 7 mg/dL (7-18); eGFR NON AFRICAN AMERICAN > 90 mL/min (90-120)
[2020-01-06 08:27] LABS: ALKALINE PHOSPHATASE 169 U/L (30-120); BILIRUBIN - TOTAL 9.15 mg/dL (0.2-1.3); PHOSPHOROUS 2.1 mg/dL (2.5-4.9); PROTEIN - SERUM 5.1 g/dL (6.4-8.2)
[2020-01-06 08:30] LABS: ALT (SGPT) 222 U/L (10-68)
[2020-01-06 08:37] LABS: HEMOGLOBIN 11.2 g/dL (13.5-17.5); MCH 27.1 pg (26.0-34.0); MCHC 32.9 g/dL (31.0-37.0); MCV 82.3 fL (80.0-100.0); MEAN PLATELET VOLUME 9.2 fL (7.4-10.4); PLATELET COUNT 260 10x3/uL (130-400); RBC 4.13 10x6/uL (4.20-6.10); RDW 14.8 % (11.5-14.5); WBC 11.3 10x3/uL (4.8-10.8)
--- NOTE | 2020-01-06 08:45 | NUR ---
ASSESSMENT COMPLETE. SEE FLOWSHEET. SON AT BEDSIDE INTERPRETTNG FOR PATIENT. NO COMPLAINTS OR NEEDS AT THIS TIME.
[2020-01-06 09:22] LABS: PROTIME 13.1 SECONDS (11.6-15.0)
--- NOTE | 2020-01-06 11:15 | NUR ---
PT. RESTING IN BED WITH EYES CLOSED. MEDICATIONS GIVEN. SON REMAINS AT BEDSIDE.
[2020-01-06 12:07] LABS: EOSINOPHILS 2 % (0-7); LYMPHOCYTES 16 % (15-50); MONOCYTES 11 % (2-11); NEUTROPHILS 46 % (40-80); PLATELET ESTIMATE NORMAL
[2020-01-06 12:08] LABS: ANISOCYTOSIS OCC
--- NOTE | 2020-01-06 12:15 | NUR ---
TO ROOM FOR FSBS. PO MEDS GIVEN. PT. REQUESTS PAIN MED. SON REMAINS AT BEDSIDE.
--- NOTE | 2020-01-06 14:30 | NUR ---
PT LEFT TO OR FOR PROCEDURE WITH SON AT BEDSIDE.
--- NOTE | 2020-01-06 15:24 | NUR ---
Nutrition Follow-up: Chart reviewed: bili and liver enzymes continue to increase. Per GI's most recent note, pancreatitis seems to be improving. Diet: NPO for ERCP (previously CL) -Procalamine @ 50mL/hr (294 calories and 36gms PRO)-- this meets ~14% of needs Last BM: 01/05/20 x 3. WT: 243# (01/06/20); Admit WT: 251# (12/31/19) Meds noted: SSI. Labs noted: Na 131(L), L 3.3(L), Glu 214(H), PO4 2.1(L), T bili 9.15(H), AST 198(H), ALT 222(H), Alk Phos 169(H) Recommend ADAT. RD available for nutrition support if needed. RD following.
--- NOTE | 2020-01-06 15:52 | NUR ---
1547 PROCEDURE STOPPED, NOT SUCCESSFUL. NO CUT, NO DYE UTILIZED.
--- NOTE | 2020-01-06 16:05 | NUR ---
1541 TOTAL OF 8.9 SEC FLURO
--- NOTE | 2020-01-06 16:33 | NUR ---
REPORT REC'D FROM SUSAN [employer] TECHNICIAN NURSE. ETA FOR PT TO RETURN TO FLOOR, APPROX 10MINS.
--- NOTE | 2020-01-06 16:45 | NUR ---
RECEIVED PT FROM PACU VIA BED ACCOMPANIED BY PACU STAFF. PT AWAKE, ALERT AND ORIENTED X3. SONS HERE AT BEDSIDE TO PROVIDE INTERPRATION. NO COMPLAINTS AT THIS TIME. IF OF NS INFUSING TO GRAVITY AND PLACED ON INFUSION PUMP AT 125CC/HR. PROCALAMINE RESTARTED PER INFUSION PUMP AT 30CC/HR. SPUTUM CULTURE OBTAINED.
--- NOTE | 2020-01-06 17:00 | NUR ---
LAB NOTIFIED PATIENT IS BACK FROM GI LAB AND POTASSIUM LAB CAN BE DRAWN.
[2020-01-06 18:18] LABS: APPEARANCE CLEAR (CLEAR); COLOR YELLOW (YELLOW); GLUCOSE 500 mg/dL (NEGATIVE); NITRITE NEGATIVE (NEGATIVE); PROTEIN NEGATIVE (NEGATIVE)
[2020-01-06 18:19] LABS: BILIRUBIN NEGATIVE (NEGATIVE); KETONE MODERATE mg/dL (NEGATIVE); UROBILINOGEN NORMAL (NORMAL)
--- NOTE | 2020-01-06 19:58 | NUR ---
RECEIVED SHIFT REPORT FROM MACKENZIE GARCIA RN, INFORMED PT THAT I WILL BE BACK IN A FEW MINUTES TO OBTAIN VS, PT VERBALIZES UNDERSTANDING, DENIES NEEDS AT THIS TIME, PT'S SON AT BEDSIDE
--- NOTE | 2020-01-06 20:15 | NUR ---
VS OBTAINED, SCD'S REAPPLIED AND WORKING PROPERLY, PT INFORMED OF TEMP AND THAT I WILL NOTIFY THE DOCTOR COLLISION MECHANIC, PT VERBALIZES UNDERSTANDING, RATES PAIN 12/04, PT STATES "I FEEL BETTER TODAY", PT'S SON AT BEDSIDE
--- NOTE | 2020-01-06 20:33 | NUR ---
RADIOLOGY TO ROOM FOR CHEST X-RAY
--- NOTE | 2020-01-06 20:35 | NUR ---
JOEL GARCIA APN PAGED
--- NOTE | 2020-01-06 20:36 | NUR ---
JOEL GARCIA, RERE CALLS UNIT, REPORT OF PT'S VS AND THAT RADIOLOGY IS HERE FOR CHEST X-RAY, SHE REPORTS THAT SHE WILL PUT ORDERS IN FOR TYLENOL
--- NOTE | 2020-01-06 21:12 | NUR ---
ASSESSMENT PER FLOW SHEET, IV IN LEFT AC INTACT WITH NO REDNESS OR EDEMA INFUSING VIA PUMP PROCALAMINE AT 50ML/HR, IV IN LEFT WRIST INTACT WITH NO REDNESS OR EDEMA INFUSING VIA PUMP NS AT 125 ML/HR, PT REPORTS FLATUS, NO BM AND VOIDING WITH NO DIFFICULTY, EMPTIED 550 MLS OF DARK YELLOW URINE FROM URINAL, PT DENIES NEED FOR PAIN MED, ADM TYLENOL PER MD ORDERS, SEE EMAR, SCD'S CONTINUE ON AND WORKING PROPERLY, PT'S SON AT BEDSIDE
--- NOTE | 2020-01-06 22:07 | NUR ---
PT INFORMED THAT I HAD TO OBTAIN FLU SWAB AND THAT HE WILL BE ON ISOLATION UNTIL I GET RESULTS BACK, PT VERBALIZES UNDERSTANDING, FLU SWAB OBTAINED, PT DENIES NEEDS AT THIS TIME
--- NOTE | 2020-01-06 22:29 | NUR ---
ADM Reid PER MD ORDERS IN REQUESTED APPLE JUICE
[2020-01-07 00:30] VITALS: BP 127/80
--- NOTE | 2020-01-07 00:30 | NUR ---
PT AROUSES TO OPENIN OF DOOR, OBTAINED FSBS AND VS, PT C/O PAIN, ADM INSULIN PER SLIDING SCALE, VERIFIED PER THIS RN AND SHAKILA MASON RN, AND PAIN MED, PER MD ORDERS, SEE EMAR, NEW BAG OF NS HUNG INFUSING VIA PUMP AT 125 ML/HR, SEE EMAR, SCD'S CONTINUE ON, EMPTIED 350 MLS OF DARK YELLOW URINE FROM URINAL, PT REQUESTED AND SERVED JELLO AND APPLE JUICE, PT DENIES FURTHER NEEDS, PT'S SON AT BEDSIDE
--- NOTE | 2020-01-07 02:16 | NUR ---
PT AROUSES TO OPENING OF DOOR, DENIES NEEDS OR PAIN AT THIS TIME, SCD'S CONTINUE ON AND WORKING PROPERLY, BED IN LOW POSITION, SIDE RAILS X 2, CALL LIGHT IN REACH, PT'S SON AT BEDSIDE
[2020-01-07 04:38] VITALS: BP 128/82
--- NOTE | 2020-01-07 04:38 | NUR ---
PT AROUSES TO OPENING OF DOOR, VS OBTAINED, PT C/O PAIN, ADM PAIN MED PER MD ORDERS, SEE EMAR, SCD'S CONTINUE ON AND WORKING PROPERLY, EMPTIED 350 MLS OF DARK YELLOW URINE FROM URINAL, PUMPS CLEARED, PT DENIES FURTHER NEEDS, PT'S SON ASLEEP AT BEDSIDE
--- NOTE | 2020-01-07 06:27 | NUR ---
PT AROUSES TO OPENING OF DOOR, OBTAINED FSBS, PT UP TO BEDSIDE SCALE, PT TO SIDE OF BED, STATES "I WANT TO SIT UP FOR A FEW MINUTES", PT'S SON REPORTS THAT HE WILL PUT THE SCD'S BACK ON HIS DAD, PT DENIES NEEDS OR PAIN AT THIS TIME
--- NOTE | 2020-01-07 07:00 | NUR ---
SHIFT REPORT TO AAKASH VELEZ RN AND SHAKILA LR RN
[2020-01-07 07:45] LABS: BASOPHILS 0.5 % (0-2); EOSINOPHILS 0.3 % (0-7); HEMATOCRIT 33.1 % (42.0-54.0); HEMOGLOBIN 10.8 g/dL (13.5-17.5); IMMATURE GRANULOCYTES 13.2 % (0-5); MCH 27.4 pg (26.0-34.0); MCHC 32.6 g/dL (31.0-37.0); MEAN PLATELET VOLUME 9.1 fL (7.4-10.4); PLATELET COUNT 253 10x3/uL (130-400); RBC 3.94 10x6/uL (4.20-6.10); RDW 15.1 % (11.5-14.5)
[2020-01-07 07:59] LABS: ALBUMIN 1.6 g/dL (3.4-5.0); ALKALINE PHOSPHATASE 201 U/L (30-120); ALT (SGPT) 198 U/L (10-68); AMYLASE - SERUM 47 U/L (25-115); CALC OSMOLALITY 272 mosm/kg (275-300); CALCIUM 7.2 mg/dL (8.5-10.1); CARBON DIOXIDE 28.8 mmol/L (21.0-32.0); CHLORIDE - SERUM 99 mmol/L (98-107); CREATININE - SERUM 0.6 mg/dL (0.6-1.3); GLUCOSE 218 mg/dL (74-106); LIPASE 354 U/L (73-393); MAGNESIUM - SERUM 1.9 mg/dL (1.8-2.4); PHOSPHOROUS 2.5 mg/dL (2.5-4.9); POTASSIUM - SERUM 3.1 mmol/L (3.5-5.1); PROTEIN - SERUM 4.9 g/dL (6.4-8.2); SODIUM 134 mmol/L (136-145); UREA NITROGEN 7 mg/dL (7-18); eGFR NON AFRICAN AMERICAN > 90 mL/min (90-120)
[2020-01-07 10:20] VITALS: BP 115/85
--- NOTE | 2020-01-07 10:30 | NUR ---
THIS RN AND Ansley LR RN TO BEDSIDE FOR SHIFT ASSESSMENT. PT AA&O X 4. DENIES PAIN. SEE FLOWSHEET. POC DISCUSSED W/PT AND HIS SON. BED LOW SIDE RAILS UP X 2.
[2020-01-07 10:55] VITALS: BP 151/92
--- NOTE | 2020-01-07 11:15 | NUR ---
PT OOB. UP TO SHOWER. BED LINES CHANGED AT THIS TIME.
--- NOTE | 2020-01-07 18:41 | NUR ---
PT RINGS CALL LIGHT REQUESTING PAIN MEDICATION.
--- NOTE | 2020-01-07 19:30 | NUR ---
BEDSIDE REPORT GIVEN BY SUSAN FINN. DISCUSSED TREATMENT PLAN AND MEDICATIONS.
[2020-01-07 20:00] VITALS: BP 137/90
--- NOTE | 2020-01-07 20:30 | NUR ---
IN ROOM FOR ASSESSMENT. PT IS LAYING IN BED WITH NO C/0 PAIN. HIS HEART SOUNDS ARE WNL. LUNGS CLEAR. BOWEL SOUNDS HEARD. SKIN IS WARM AND DRY. PT HAS AN IV LOCATED IN THE LEFT WRIST AREA THAT FLUSHES WELL. PT WILL BE GETTING ANOTHER IV SOON. PT CAN SPEAK TAJIK. I ASKED HIM IF HE SPOKE TAJIK AND HE SAID YES, SOME. I CARRIED ON A CONVERSATION WITH HIM. SON IS AT BEDSIDE
--- NOTE | 2020-01-07 21:15 | NUR ---
YADI WILLSON RESTARTED AND IV IN THE PT LEFT AC. HE STARTED THIS WITH A 20 GUAGE NEEDLE WITH ONE STICK. PT TOLERATED THIS PROCEDURE WELL.
--- NOTE | 2020-01-07 22:32 | NUR ---
PT REUESTED PAIN MED FOR HIS BACK. HE RATES THE PAIN AT A 7. NARCO 10 GIVEN PO.
[2020-01-08] VITALS (11 sets, daily range): BP systolic 94–136; BP diastolic 67–91
--- NOTE | 2020-01-08 | NUR ---
BLOOD SUGAR DONE. 4 UNITS OF INSULIN GIVEN SQ PER SLIDING SCALE. VS TAKEN AND CHARTED.
--- NOTE | 2020-01-08 00:05 | NUR ---
BLOOD SUGAR 198
--- NOTE | 2020-01-08 02:00 | NUR ---
RESTING QUIETLY WITH EYES CLOSED IN BED. IV'S CONT. TO INFUSE.
--- NOTE | 2020-01-08 04:55 | NUR ---
PT REQUESTED PAIN MED. HE STATES HIS PAIN LEVEL IS 7. HE RECEIVED A NARCO 10.
--- NOTE | 2020-01-08 06:10 | NUR ---
BLOOD SUGAR 226
[2020-01-08 06:41] LABS: ALBUMIN 1.4 g/dL (3.4-5.0); ALKALINE PHOSPHATASE 271 U/L (30-120); ALT (SGPT) 195 U/L (10-68); AMYLASE - SERUM 50 U/L (25-115); BILIRUBIN - TOTAL 8.23 mg/dL (0.2-1.3); CALC OSMOLALITY 269 mosm/kg (275-300); CARBON DIOXIDE 28.7 mmol/L (21.0-32.0); CHLORIDE - SERUM 97 mmol/L (98-107); CREATININE - SERUM 0.7 mg/dL (0.6-1.3); GLUCOSE 219 mg/dL (74-106); LIPASE 380 U/L (73-393); MAGNESIUM - SERUM 1.9 mg/dL (1.8-2.4); PHOSPHOROUS 2.9 mg/dL (2.5-4.9); POTASSIUM - SERUM 3.5 mmol/L (3.5-5.1); PROTEIN - SERUM 5.9 g/dL (6.4-8.2); SODIUM 132 mmol/L (136-145); UREA NITROGEN 8 mg/dL (7-18); eGFR NON AFRICAN AMERICAN > 90 mL/min (90-120)
[2020-01-08 07:19] LABS: HEMATOCRIT 33.9 % (42.0-54.0); HEMOGLOBIN 10.9 g/dL (13.5-17.5); MCH 27.1 pg (26.0-34.0); MCHC 32.2 g/dL (31.0-37.0); MCV 84.3 fL (80.0-100.0); MEAN PLATELET VOLUME 9.2 fL (7.4-10.4); PLATELET COUNT 281 10x3/uL (130-400); RBC 4.02 10x6/uL (4.20-6.10); RDW 15.1 % (11.5-14.5); WBC 13.1 10x3/uL (4.8-10.8)
--- NOTE | 2020-01-08 07:30 | NUR ---
PT CURRENTLY SLEEPING. LEFT UNDISTURBED. NO BEDSIDE SHIFT REPORT GIVEN.
--- NOTE | 2020-01-08 07:45 | NUR ---
PT OFF UNIT AT THIS TIME FOR SCHEDULED LAP CHOLEOCYSTECTOMY VIA BED PER OR TECH.
--- NOTE | 2020-01-08 10:11 | NUR ---
REC'D PT BACK FROM [facility]. PT AA&O X 4. PAIN ASSESSED. PT DENIES PAIN.
--- NOTE | 2020-01-08 10:30 | NUR ---
THIS RN AND Dianne GARCIA RN REMAIN AT BEDSIDE TO RESTART NS AT 50ML/HR TO LEFT AC IV SITE. AND NEXT DOSE OF PROCALAMINE AT 75ML/HR TO LEFT WRIST VIA IV PUMP. PT RESTING QUIETLY W/EYES CLOSED. RESP EVEN. 02 INCREASED TO 2.5L VIA NC TO MAINTAIN 02OF 95%. PT WAKES OCCASIONALLY. CONTINUES TO DENY PAIN. REQUEST ICE WATER. ICE WATER SERVED. SCD WRAP ON BILATLERALLY. CONNECTED TO PUMP. PUMP IS ON AND FUNCTIONING. SHIFT ASSESSMENT COMPLETED AT THIS TIME. SEE FLOWSHEET.
--- NOTE | 2020-01-08 10:50 | NUR ---
FAMILY AT PT'S SIDE. BED LOW, SIDE RAILS UP X 2. CALL LIGHT AND PHONE AT PT'S SIDE.
[2020-01-08 11:25] LABS: EOSINOPHILS 1 % (0-7); LYMPHOCYTES 15 % (15-50); MONOCYTES 8 % (2-11); NEUTROPHILS 56 % (40-80); PLATELET ESTIMATE NORMAL
[2020-01-08 11:26] LABS: ANISOCYTOSIS OCC; ROULEAUX OCC
--- NOTE | 2020-01-08 15:00 | NUR ---
THIS RN TO ROOM. PT IN LOW FOLWER'S. CONTINUES TO DOSE ON AND OFF. OPENS EYES SPONTANEOUSLY W/VERBAL STIMULUS. DENIES PAIN. VITAL SIGNS OBTAINED. ABD INSPECTED. ABD DISTENDED. BOWEL SOUNDS PRESENT. TEACHING PROVIDED TO PT AND HIS SON THAT PT NEEDS TO GET UP AND AMBULATE IN THE HALLS TO HELP EXPEL GAS. BOTH VERBALIZE UNDERSTANDING AND ARE AGREEABLE.
--- NOTE | 2020-01-08 15:30 | NUR ---
PT UP AMBULATING IN HALLS. WEIGHT OBTAINED AT THIS TIME. PT AMBULATORY BACK TO ROOM. TO SITTING ON SIDE OF BED. REPORTS HE DID PASS FLATUS WHEN AMBULATING. REPORTS ABD PAIN 04/03. PAIN MEDICATION OFFEED. PT ACCEPTS. NORCO 10 1 TAB GIVEN. FRESH ICE WATER SERVED. BATH WIPES PROVIDED PER REQUEST. DENIES FURTHER NEEDS. FAMILY AT BEDSIDE.
--- NOTE | 2020-01-08 17:00 | NUR ---
ROUNDS MADE. PT SITTING ON SIDE OF BED VISITING W/FAMILY. PAIN AND NEEDS ASSESSED. PT CONTINUES TO RATE PAIN 3/10. DENIES NEEDS. PT AND FAMILY NOTIFIED THAT PT WILL BE TRANSFERED UPSTAIRS SOON. ALL ARE AGREEABLE.
--- NOTE | 2020-01-08 17:54 | NUR ---
REPORT CALLED TO SUSAN GIVENS TO ASSUME CARE.
--- NOTE | 2020-01-08 18:23 | NUR ---
PT TRANSFERED VIA W/C TO RM 2216. TRANSFERS SELF TO BED. BED IN LOW POSITION. SIDE RAILS UP X 2. CALL LIGHT AT PT'S SIDE. FAMILY IN ROOM WITH PT. PRIMARY NURSE SUSAN GIVENS INFORMED PT HAS ARRIVED. MEDICATIONS PROVIDED TO INSTRUCTIONAL SYSTEMS DESIGNER.
--- NOTE | 2020-01-08 18:41 | NUR ---
PATIENT TO UNIT AT THIS TIME FROM [facility]. IV INTACT. CALL LIGHT WITHIN REACH. FAMILY AT BEDSIDE.
--- NOTE | 2020-01-08 19:00 | NUR ---
REPORT GIVEN BY SUSAN Pichardo. THIS PT IS TRANSFERING TO l&d LATER THIS EVENING.
[2020-01-09] VITALS: BP 140/89
--- NOTE | 2020-01-09 02:56 | NUR ---
PT RESTING IN BED. EYES CLOSED. NO SIGNS OF DISTRESS. BREATHING EVEN AND UNLABORED. IV SITES LT AC AND LT WRIST DRESSINGS CLEAN DRY AND INTACT. NO SIGNS OF INFECTION OR INFULTRATION. SKIN JAUNDICE IN COLOR. ABD LAP SITES X5 DRESSINGS CLEAN DRY AND INTACT. WILL CONTINUE PLAN OF CARE. CALL LIGHT IN REACH. BED LOWERED AND LOCKED. BED RAILS UPX2.
[2020-01-09 04:00] VITALS: BP 119/82
--- NOTE | 2020-01-09 04:00 | NUR ---
I have reviewed this patient and I concur with the Shift Assessment completed by the Licensed Practical Nurse today this shift.
[2020-01-09 05:21] LABS: BASOPHILS 0.1 % (0-2); EOSINOPHILS 0.3 % (0-7); HEMATOCRIT 33.2 % (42.0-54.0); HEMOGLOBIN 10.6 g/dL (13.5-17.5); IMMATURE GRANULOCYTES 8.2 % (0-5); LYMPHOCYTES 8.5 % (15-50); MCH 26.9 pg (26.0-34.0); MCHC 31.9 g/dL (31.0-37.0); MCV 84.3 fL (80.0-100.0); NEUTROPHILS 76.9 % (40-80); PLATELET COUNT 299 10x3/uL (130-400); RBC 3.94 10x6/uL (4.20-6.10); RDW 15.2 % (11.5-14.5); WBC 14.3 10x3/uL (4.8-10.8)
[2020-01-09 05:45] LABS: ALBUMIN 1.5 g/dL (3.4-5.0); ALKALINE PHOSPHATASE 336 U/L (30-120); ALT (SGPT) 194 U/L (10-68); AMYLASE - SERUM 40 U/L (25-115); BILIRUBIN - TOTAL 5.59 mg/dL (0.2-1.3); CALC OSMOLALITY 264 mosm/kg (275-300); CALCIUM 7.7 mg/dL (8.5-10.1); CARBON DIOXIDE 27.3 mmol/L (21.0-32.0); CHLORIDE - SERUM 96 mmol/L (98-107); CREATININE - SERUM 0.6 mg/dL (0.6-1.3); GLUCOSE 174 mg/dL (74-106); LIPASE 295 U/L (73-393); MAGNESIUM - SERUM 1.9 mg/dL (1.8-2.4); PHOSPHOROUS 3.1 mg/dL (2.5-4.9); POTASSIUM - SERUM 3.3 mmol/L (3.5-5.1); SODIUM 131 mmol/L (136-145); UREA NITROGEN 8 mg/dL (7-18); eGFR NON AFRICAN AMERICAN > 90 mL/min (90-120)
--- NOTE | 2020-01-09 07:10 | NUR ---
PT RESTING IN BED. NO SIGNS OF DISTRESS. IV LEFT WRIST AND LEFT AC PATENT NO REDNESS OR TENDERNESS. 5 LAP SITES TO ABDOMEN. DRESSING CLEAN AND INTACT. DENIES ANY FURTHER NEED AT THIS TIME. CALL LIGHT IN REACH. BED LOW POSITION. FAMILY AT BEDSIDE AT THIS TIME.
[2020-01-09 08:47] VITALS: BP 149/93
[2020-01-09 12:10] VITALS: BP 123/82
--- NOTE | 2020-01-09 19:05 | NUR ---
PATIENT ALERT AND ORIENTED. SEVERAL FAMILY MEMBERS IN ROOM. DENIES NEEDS AT THIS TIME. PATIENT IS JAUNDICED WITH DISTENDED ABDOMEN. LAP SITES X 5. COVERED WITH BANDAIDS, CLEAN AND DRY. LEFT AC IV THAT IS INFUSING NS @ 50 AND LEFT WRIST INFUSING PROCALAMINE AT 75. PATIENT IS UP AND AMBULATORY TO BATHROOM NEEDED. SON STAYING OVER NIGHT. BOTH DENY FURTHER NEEDS. CALL LIGHT IN REACH. CPOC.
[2020-01-09 20:00] VITALS: BP 111/78
--- NOTE | 2020-01-09 21:55 | NUR ---
REASSESSED TEMPERATURE AFTER NORCO, 98.6
[2020-01-10] VITALS: BP 117/83
[2020-01-10 04:00] VITALS: BP 126/82
[2020-01-10 05:28] LABS: BASOPHILS 0.1 % (0-2); EOSINOPHILS 0.3 % (0-7); HEMATOCRIT 30.8 % (42.0-54.0); HEMOGLOBIN 9.9 g/dL (13.5-17.5); LYMPHOCYTES 10.1 % (15-50); MCH 27.1 pg (26.0-34.0); MCHC 32.1 g/dL (31.0-37.0); MCV 84.4 fL (80.0-100.0); MEAN PLATELET VOLUME 8.7 fL (7.4-10.4); NEUTROPHILS 75.5 % (40-80); PLATELET COUNT 311 10x3/uL (130-400); RBC 3.65 10x6/uL (4.20-6.10); RDW 15.2 % (11.5-14.5); WBC 15.1 10x3/uL (4.8-10.8)
[2020-01-10 05:43] LABS: ALBUMIN 1.4 g/dL (3.4-5.0); ALKALINE PHOSPHATASE 284 U/L (30-120); BILIRUBIN - TOTAL 3.61 mg/dL (0.2-1.3); CALC OSMOLALITY 265 mosm/kg (275-300); CALCIUM 8.1 mg/dL (8.5-10.1); CARBON DIOXIDE 26.7 mmol/L (21.0-32.0); CHLORIDE - SERUM 98 mmol/L (98-107); CREATININE - SERUM 0.6 mg/dL (0.6-1.3); GLUCOSE 196 mg/dL (74-106); MAGNESIUM - SERUM 2.1 mg/dL (1.8-2.4); PHOSPHOROUS 3.1 mg/dL (2.5-4.9); POTASSIUM - SERUM 3.7 mmol/L (3.5-5.1); PROTEIN - SERUM 6.1 g/dL (6.4-8.2); SODIUM 131 mmol/L (136-145); UREA NITROGEN 8 mg/dL (7-18); eGFR NON AFRICAN AMERICAN > 90 mL/min (90-120)
[2020-01-10 05:44] LABS: ALT (SGPT) 134 U/L (10-68)
--- NOTE | 2020-01-10 07:20 | NUR ---
RECIEVE REPORT. RESTING IN BED WITH EYES CLOSED. NO SIGNS OF DISTRESS. CONTINUE PLAN OF CARE AND SAFETY PRECAUTIONS.
[2020-01-10 08:12] VITALS: BP 106/73
[2020-01-10 12:02] VITALS: BP 113/74
--- NOTE | 2020-01-10 19:15 | NUR ---
PATIENT ALERT AND ORIENTED WITH SEVERAL FAMILY MEMBERS IN ROOM. PATIENT COLOR HAS IMPROVED SINCE PREVIOUS HS SHIFT, BUT REMAINS JAUNDICED AT THIS TIME WITH YELLOW SCLERA NOTED BILATERALLY. PATIENT HAS DISTENDED ABDOMEN THAT HAS LAP SITES COVERED WITH BANDAIDS, CLEAN DRY AND INTACT. PATIENT HAS LEFT AC IV THAT IS INFUSING NS @ 75 AND LEFT WRIST IV THAT IS INFUSING PROCALAMINE @ 75. PATIENT DENIES PAIN AT THIS TIME. PATIENT IS AMBULATORY TO BATHROOM. SON AT BEDSIDE AND ASSISTS PATIENT WHEN NEEDED. CALL LIGHT IS IN REACH OF PATIENT. BED LOWERED. CPOC.
[2020-01-10 20:00] VITALS: BP 120/80
--- NOTE | 2020-01-10 22:34 | NUR ---
AMBULATING UNIT AT THIS TIME WITH OLGA.
[2020-01-11] VITALS: BP 119/80
--- NOTE | 2020-01-11 00:15 | NUR ---
PROVIDED NORCO 10 FOR PAIN RATING OF 6/10. CPOC.
[2020-01-11 04:00] VITALS: BP 114/79
[2020-01-11 04:36] LABS: BASOPHILS 0.2 % (0-2); EOSINOPHILS 0.3 % (0-7); HEMATOCRIT 30.4 % (42.0-54.0); HEMOGLOBIN 9.7 g/dL (13.5-17.5); IMMATURE GRANULOCYTES 8.3 % (0-5); LYMPHOCYTES 11.4 % (15-50); MCH 26.9 pg (26.0-34.0); MCHC 31.9 g/dL (31.0-37.0); MCV 84.2 fL (80.0-100.0); MEAN PLATELET VOLUME 8.7 fL (7.4-10.4); MONOCYTES 7.3 % (2-11); NEUTROPHILS 72.5 % (40-80); PLATELET COUNT 362 10x3/uL (130-400); RBC 3.61 10x6/uL (4.20-6.10); RDW 15.5 % (11.5-14.5); WBC 14.3 10x3/uL (4.8-10.8)
[2020-01-11 04:39] LABS: ALBUMIN 1.5 g/dL (3.4-5.0); ALKALINE PHOSPHATASE 319 U/L (30-120); ALT (SGPT) 112 U/L (10-68); BILIRUBIN - TOTAL 2.45 mg/dL (0.2-1.3); CALC OSMOLALITY 264 mosm/kg (275-300); CALCIUM 8.1 mg/dL (8.5-10.1); CARBON DIOXIDE 26.1 mmol/L (21.0-32.0); CHLORIDE - SERUM 98 mmol/L (98-107); CREATININE - SERUM 0.7 mg/dL (0.6-1.3); GLUCOSE 175 mg/dL (74-106); MAGNESIUM - SERUM 2.2 mg/dL (1.8-2.4); PHOSPHOROUS 3.4 mg/dL (2.5-4.9); POTASSIUM - SERUM 3.9 mmol/L (3.5-5.1); PROTEIN - SERUM 6.4 g/dL (6.4-8.2); SODIUM 131 mmol/L (136-145); UREA NITROGEN 8 mg/dL (7-18); eGFR NON AFRICAN AMERICAN > 90 mL/min (90-120)
--- NOTE | 2020-01-11 07:10 | NUR ---
PT RESTING IN BED. NO SIGNS OF DISTRESS. IV TO LEFT AC AND LEFT WRIST PATENT NO REDNESS OR TENDERNESS. 5 LAP SITES TO ABDOMEN. DRESSING CLEAN AND INTACT. DENIES ANY FURTHER NEED AT THIS TIME. CALL LIGHT IN REACH. BED LOW POSITION. FAMILY AT BEDSIDE.
[2020-01-11 08:23] VITALS: BP 126/76
--- NOTE | 2020-01-11 09:55 | NUR ---
PT IS WITHOUT SIGNS OF DISTRESS.CALL LIGHT IN REACH
[2020-01-11 12:18] VITALS: BP 119/79
--- NOTE | 2020-01-11 15:05 | MORECARE ---
CASE MANAGEMENT DISCHARGE SUMMARY PATIENT: SOCORRO CHRISTENSEN UNIT: [id number] ADM DATE: 12/31/19 AGE: 39 : 78 SEX: M ROOM/BED: D.2216 AUTHOR: [email or web address] PHYSICIAN: REFERRING PHYSICIAN: SHAWN CALVIN MD DATE OF SERVICE: 01/11/20 Discharge Plan Patient Name: SOCORRO CHRISTENSEN Facility: [facility]:[place] : 1980 Planned Disposition: Home Anticipated Discharge Date: Discharge Date: Expected LOS: Initial Reviewer: [email or web address] Initial Review Date: 01/04/2020 Generated: 01/11/20 4:04 pm Comments DCP- Discharge Planning Updated by [id number]: Andreina Acosta on 01/11/20 1:[address] PATIENT DISCHARGING HOME TODAY, NO NEEDS IDENTIFIED DCP- Discharge Planning Updated by [id number]: Fern Teresa on 01/04/20 1:[address] Patient Name: SOCORRO CHRISTENSEN Admission Status: ER Accout number: [id number] Admission Date: 12-31-2019 : 1980 Admission Diagnosis: Attending: SHAWN HASSAN Current LOS: 4 Anticipated DC Date: Planned Disposition: Home Primary Insurance: UNINSURED DISCOUNT PLAN Discharge Planning Comments: CM MET WITH PATIENT AFTER OBTAINING VERBAL CONSENT. PATIENT SPEAKS VERY LITTLE DANISH, SON IS AT THE BEDSIDE AND CAN TRANSLATE. PATIENT PLANS TO DC TO HOME WITH FAMILY WHEN MEDICALLY STABLE. WAITING FOR TRANSFER TO THE FLOOR. I LEFT [facility] WITH [facility] DATA TO HELP GET PATIENT MEDICAID. CM TO FOLLOW AND ASSIST. I AM GIVING THE SON AN EXCUSE FOR SCHOOL. Chemical Tester: Fern Teresa DCPIA - Discharge Planning Initial Assessment Updated by [email or web address]: Fern Teresa on 01/04/20 2:16 pm * Is the patient Alert and Oriented? Yes * [facility] * Pharmacy [facility] * Preadmission Environment Home with Family * ADLs Independent * Additional services required to return to the preadmission environment? No * Can the patient safely return to the preadmission environment? Yes * Has this patient been hospitalized within the prior 30 days at any hospital? No Last DP export: 01/04/20 1:24 p Patient Name: SOCORRO CHRISTENSEN Page 75555 at 1505 All edits/amendments must be made on the electronic document DICTATION DATE: 01/11/201503 SHIPPING CHECKER: HAM 01/11/201503 RPT#: [id number] DC DATE: STATUS: ADM IN [facility] [address] [place] [address] END OF REPORT
[2020-01-11 16:43] VITALS: BP 111/64
[2020-01-11 21:39] VITALS: BP 131/87
--- NOTE | 2020-01-11 22:00 | NUR ---
A&O, SUPINE IN BED. DENIES PAIN. FAMILY AT BEDSIDE. AMBULATES INDEPENDENTLY. NO NEEDS VOICED AT THIS TIME.
[2020-01-12 01:26] VITALS: BP 121/73
[2020-01-12 04:59] LABS: ALBUMIN 1.7 g/dL (3.4-5.0); ALKALINE PHOSPHATASE 313 U/L (30-120); ALT (SGPT) 104 U/L (10-68); BILIRUBIN - TOTAL 1.97 mg/dL (0.2-1.3); CALC OSMOLALITY 267 mosm/kg (275-300); CALCIUM 8.4 mg/dL (8.5-10.1); CARBON DIOXIDE 25.6 mmol/L (21.0-32.0); CHLORIDE - SERUM 98 mmol/L (98-107); CREATININE - SERUM 0.7 mg/dL (0.6-1.3); GLUCOSE 177 mg/dL (74-106); POTASSIUM - SERUM 4.1 mmol/L (3.5-5.1); PROTEIN - SERUM 6.7 g/dL (6.4-8.2); SODIUM 132 mmol/L (136-145); UREA NITROGEN 9 mg/dL (7-18); eGFR NON AFRICAN AMERICAN > 90 mL/min (90-120)
[2020-01-12 05:10] LABS: BASOPHILS 0.2 % (0-2); EOSINOPHILS 0.7 % (0-7); HEMATOCRIT 30.6 % (42.0-54.0); HEMOGLOBIN 9.7 g/dL (13.5-17.5); IMMATURE GRANULOCYTES 8.3 % (0-5); LYMPHOCYTES 12.5 % (15-50); MCH 26.7 pg (26.0-34.0); MCHC 31.7 g/dL (31.0-37.0); MCV 84.3 fL (80.0-100.0); MEAN PLATELET VOLUME 8.6 fL (7.4-10.4); MONOCYTES 7.4 % (2-11); NEUTROPHILS 70.9 % (40-80); PLATELET COUNT 397 10x3/uL (130-400); RBC 3.63 10x6/uL (4.20-6.10); RDW 15.6 % (11.5-14.5); WBC 13.3 10x3/uL (4.8-10.8)
[2020-01-12 05:30] VITALS: BP 117/77
--- NOTE | 2020-01-12 06:41 | NUR ---
I have reviewed this patient and I concur with the Shift Assessment completed by the Licensed Practical Nurse today this shift.
[2020-01-12 09:28] VITALS: BP 115/74
--- NOTE | 2020-01-12 09:30 | NUR ---
PT RESTING IN BED WITH EYES CLOSED. RESP EVEN AND UNLABORED. FAMILY AT BEDSIDE. PT FAMILY REQUEST MECHANICAL INTERN FOR NUTRITIONAL EDUCATION. DIEATICIAN NOTIFIED. IV TO LEFT AC WITH NS @ 50ML/HR, LEFT WRIST PROCALAMINE @ 75ML/HR BOTH INFUSING VIA PUMP. SITE WITHOUT REDNESS OR EDEMA. LAP SITES TO ABDOMEN X 5 SITES WITHOUT REDNESS EDEMA OR DRAINAGE. DENIES FURTHER NEEDS AT THIS TIME. CL WITHIN REACH. ENCOURAGED TO CALL WITH NEEDS. CONTINUE POC
--- NOTE | 2020-01-12 11:19 | NUR ---
Nutrition education on DMT2 diet: Son and family friend present (both speak fluent Amharic). Son reports pt drinks regular soda and sweet tea. Pt also skips meals daily and eats very large meals when he does eat. Pt also with sweet tooth. Reviewed CHO containing foods and the affect CHO have on glucose. Stressed the importance of eating meals at consistent times during the day; at least 3 meals and 2 snacks per day at consistent times every day. Reviewed sample menus with emphasis on CHO. Advised pt to stop drining sugary drinks and drink water. Also advised pt to eat very little fruit during the day - pt has a very large fruit basket in room. Reviewed glucose numbers and A1c. Answered all qluestions. Provided pt and son with printed Bruneian handouts re: checking glucose, plate method of meal planning, managing diabetes booklet. Thank you for the consult.
--- NOTE | 2020-01-12 12:24 | NUR ---
PT EDUCATION PROVIDED REGARDING INSULIN ADMINISTRATION. TALKED WITH PT REGARDING DRAWING INSULIN FROM THE VIAL, STRESSING THE IMPORTANCE OF ADEQUATE DOSEAGE. DEMONSTRATED HOW TO WITHDRAW 8 UNITS INTO THE SYRINGE. CLEAN AREA TO ADMINISTER INSULIN AND THEN ADMINISTER INSULIN. DISCUSSED AREAS APPROPRIATE TO ADMINISTER INSULIN IN. PT VOICES UNDERSTANDING. TO PROVIDE PT AND FAMILY PRESENT SYRINGE AND SALINE VIAL TO PRACTICE DRAWING INSULIN. PT DENIES QUESTIONS AT THIS TIME, BUT DOES NEED CONTINUED EDUCATION TO SAFELY ADMINISTER OWN INSULIN
[2020-01-12 12:45] VITALS: BP 116/77
[2020-01-12 17:17] VITALS: BP 120/78
--- NOTE | 2020-01-12 19:35 | NUR ---
A&O X 4. FAMILY AT BEDSIDE. PT ON SIDE OF BED, STATED TO FAMILY HE WANTS TO GET UP AND WALK AROUND. NO S/SX OF DISTRESS, DENIES PAIN, CONTINUE PLAN OF CARE.
[2020-01-12 22:49] LABS: APPEARANCE CLEAR (CLEAR); BILIRUBIN NEGATIVE (NEGATIVE); COLOR YELLOW (YELLOW); GLUCOSE NEGATIVE (NEGATIVE); KETONE NEGATIVE (NEGATIVE); NITRITE NEGATIVE (NEGATIVE); PROTEIN NEGATIVE (NEGATIVE); UROBILINOGEN NORMAL (NORMAL)
[2020-01-12 23:09] VITALS: BP 129/79
[2020-01-13 02:53] VITALS: BP 123/81
--- NOTE | 2020-01-13 04:19 | NUR ---
I have reviewed this patient and I concur with the Shift Assessment completed by the Licensed Practical Nurse today this shift.
[2020-01-13 05:57] VITALS: BP 116/77
[2020-01-13 06:18] LABS: ALBUMIN 1.9 g/dL (3.4-5.0); ALKALINE PHOSPHATASE 273 U/L (30-120); ALT (SGPT) 81 U/L (10-68); BILIRUBIN - TOTAL 1.72 mg/dL (0.2-1.3); CALC OSMOLALITY 259 mosm/kg (275-300); CALCIUM 8.3 mg/dL (8.5-10.1); CARBON DIOXIDE 26.6 mmol/L (21.0-32.0); CHLORIDE - SERUM 96 mmol/L (98-107); CREATININE - SERUM 0.8 mg/dL (0.6-1.3); GLUCOSE 171 mg/dL (74-106); MAGNESIUM - SERUM 2.2 mg/dL (1.8-2.4); PHOSPHOROUS 3.9 mg/dL (2.5-4.9); POTASSIUM - SERUM 4.2 mmol/L (3.5-5.1); SODIUM 128 mmol/L (136-145); UREA NITROGEN 10 mg/dL (7-18); eGFR NON AFRICAN AMERICAN > 90 mL/min (90-120)
[2020-01-13 06:49] LABS: BASOPHILS 0.4 % (0-2); EOSINOPHILS 1.4 % (0-7); HEMATOCRIT 31.9 % (42.0-54.0); IMMATURE GRANULOCYTES 10.3 % (0-5); LYMPHOCYTES 12.5 % (15-50); MCH 26.8 pg (26.0-34.0); MCHC 31.3 g/dL (31.0-37.0); MCV 85.5 fL (80.0-100.0); MEAN PLATELET VOLUME 8.7 fL (7.4-10.4); MONOCYTES 8.4 % (2-11); PLATELET COUNT 463 10x3/uL (130-400); RBC 3.73 10x6/uL (4.20-6.10); RDW 15.5 % (11.5-14.5)
[2020-01-13 09:04] VITALS: BP 116/75
--- NOTE | 2020-01-13 10:59 | NUR ---
RESTING IN BED, BOTHER IN ROOM, NO DISTRESS NOTED, FLU SWAB THIS AM NEG, CONT TO MONITOR
[2020-01-13 13:41] VITALS: BP 133/83
[2020-01-13 17:51] VITALS: BP 117/76
[2020-01-13 20:00] VITALS: BP 120/73
--- NOTE | 2020-01-13 22:00 | NUR ---
ELEVATED TEMP, A/C ADJUSTED IN ROOM TO MAKE COOLER, HEAVY BLANKETS REMOVED AND COLD BEVERAGES ENCOURAGED.
[2020-01-14] VITALS: BP 116/71
[2020-01-14 04:00] VITALS: BP 118/70
--- NOTE | 2020-01-14 04:09 | NUR ---
I have reviewed this patient and I concur with the Shift Assessment completed by the Licensed Practical Nurse today this shift.
[2020-01-14 04:58] LABS: BASOPHILS 0.5 % (0-2); EOSINOPHILS 1.4 % (0-7); HEMATOCRIT 31.3 % (42.0-54.0); HEMOGLOBIN 9.8 g/dL (13.5-17.5); IMMATURE GRANULOCYTES 8.1 % (0-5); LYMPHOCYTES 18.1 % (15-50); MCH 26.6 pg (26.0-34.0); MCHC 31.3 g/dL (31.0-37.0); MCV 85.1 fL (80.0-100.0); MEAN PLATELET VOLUME 8.3 fL (7.4-10.4); MONOCYTES 11.9 % (2-11); PLATELET COUNT 478 10x3/uL (130-400); RBC 3.68 10x6/uL (4.20-6.10); RDW 15.2 % (11.5-14.5); WBC 9.4 10x3/uL (4.8-10.8)
[2020-01-14 05:13] LABS: ALBUMIN 1.9 g/dL (3.4-5.0); ALKALINE PHOSPHATASE 237 U/L (30-120); ALT (SGPT) 75 U/L (10-68); BILIRUBIN - TOTAL 1.58 mg/dL (0.2-1.3); CALC OSMOLALITY 265 mosm/kg (275-300); CALCIUM 8.3 mg/dL (8.5-10.1); CARBON DIOXIDE 25.5 mmol/L (21.0-32.0); CHLORIDE - SERUM 97 mmol/L (98-107); CREATININE - SERUM 0.8 mg/dL (0.6-1.3); GLUCOSE 158 mg/dL (74-106); MAGNESIUM - SERUM 2.2 mg/dL (1.8-2.4); PHOSPHOROUS 3.3 mg/dL (2.5-4.9); POTASSIUM - SERUM 4.1 mmol/L (3.5-5.1); SODIUM 131 mmol/L (136-145); UREA NITROGEN 12 mg/dL (7-18); eGFR NON AFRICAN AMERICAN > 90 mL/min (90-120)
[2020-01-14 09:16] VITALS: BP 117/74
--- NOTE | 2020-01-14 10:25 | NUR ---
ASSESSMENT PER FLOW SHEET./ PT IS WITHOUT DISTRESS. AT BEDSIDE.CALL LIGHT IN REACH
[2020-01-14 12:21] VITALS: BP 114/101
[2020-01-14 20:00] VITALS: BP 120/77
--- NOTE | 2020-01-14 20:00 | NUR ---
PT AND FAMILY MEMBER IN ROOM. PT DENIES PAIN/DISCOMFORT. ROOM SET TO COOL DOWN, ENCOURAGED PO COLD BEVERAGES. PT DEMONSTRATED UNDERSTANDING. WILL CONTINUE TO MONITOR.
[2020-01-15 04:00] VITALS: BP 106/68
[2020-01-15 04:17] LABS: BASOPHILS 0.4 % (0-2); HEMATOCRIT 31.3 % (42.0-54.0); HEMOGLOBIN 9.9 g/dL (13.5-17.5); IMMATURE GRANULOCYTES 5.1 % (0-5); MCHC 31.6 g/dL (31.0-37.0); MCV 85.5 fL (80.0-100.0); MEAN PLATELET VOLUME 8.3 fL (7.4-10.4); MONOCYTES 11.1 % (2-11); NEUTROPHILS 56.4 % (40-80); PLATELET COUNT 468 10x3/uL (130-400); RBC 3.66 10x6/uL (4.20-6.10); RDW 14.9 % (11.5-14.5); WBC 7.8 10x3/uL (4.8-10.8)
[2020-01-15 04:38] LABS: ALBUMIN 2.1 g/dL (3.4-5.0); ALKALINE PHOSPHATASE 223 U/L (30-120); ALT (SGPT) 70 U/L (10-68); BILIRUBIN - TOTAL 1.43 mg/dL (0.2-1.3); CALC OSMOLALITY 264 mosm/kg (275-300); CALCIUM 7.9 mg/dL (8.5-10.1); CARBON DIOXIDE 26.3 mmol/L (21.0-32.0); CHLORIDE - SERUM 98 mmol/L (98-107); CREATININE - SERUM 0.8 mg/dL (0.6-1.3); GLUCOSE 164 mg/dL (74-106); PHOSPHOROUS 3.5 mg/dL (2.5-4.9); POTASSIUM - SERUM 4.3 mmol/L (3.5-5.1); SODIUM 130 mmol/L (136-145); UREA NITROGEN 12 mg/dL (7-18); eGFR NON AFRICAN AMERICAN > 90 mL/min (90-120)
[2020-01-15 09:48] VITALS: BP 106/65
--- NOTE | 2020-01-15 09:59 | NUR ---
ALERT AND ORIENTED. LUNGS CLEAR BIALTERALLY. HEART SOUNDS S1 ANDS 2 HEARD IN ALL FEILDS. BOWEL SOUNDS ACTIVE X 4. SKIN INTACT WITHOUT REDNESS. IV TO LEFT AC PATENT WITHOUT REDNESS. DENIES PAIN. DENIES NEEDS. BED LOW. CALL HURST AND PERSONAL ITEMS IN REACH. WILL CONTINUE TO MONITOR.
--- NOTE | 2020-01-15 12:59 | NUR ---
RESTING IN BED. AT BEDSIDE. DENIES NEEDS. WILL CONTINUE TO MONITOR.
--- NOTE | 2020-01-15 13:12 | NUR ---
Nutrition follow-up: Diet: consistent CHO PO intake 75-100% of meals Insulin training ongonig with nursing Labs reviewed; glucose under better control Wt: 277# RDN following.
[2020-01-15 13:40] VITALS: BP 106/69
[2020-01-15] MEDS ORDERED: TAMIFLU75 MG PO (15:55)
[2020-01-15] MEDS ORDERED: ZPAK PO (15:58)
[2020-01-15] MEDS ORDERED: VIBRAMYCIN 100100 MG PO (16:01)
[2020-01-15] MEDS ORDERED: INSULINSYR&NEEDLES SC (16:02)
--- NOTE | 2020-01-15 16:55 | MORECARE ---
CASE MANAGEMENT DISCHARGE SUMMARY PATIENT: SOCORRO CHRISTENSEN UNIT: [id number] ADM DATE: 12/31/19 AGE: 39 : 78 SEX: M ROOM/BED: D.2216 AUTHOR: BLAIR ROME PHYSICIAN: REFERRING PHYSICIAN: SHAWN CALVIN MD DATE OF SERVICE: 01/15/20 Discharge Plan Patient Name: SOCORRO CHRISTENSEN Facility: [facility]:[place] : 1980 Planned Disposition: Home Anticipated Discharge Date: Discharge Date: Expected LOS: Initial Reviewer: [email or web address] Initial Review Date: 01/04/2020 Generated: 01/15/20 5:54 pm Comments DCP- Discharge Planning Updated by [email or web address]: Caren Xavier on 01/15/20 3:[address] Patient is being discharged now. I have called [facility] and they will provide at the returned case inspector expense Doxycycline 100mg PO BID for 10 days (17.29), Z - pack (12.99), Tamiflu 75mg po BID X 4 days (40.41), and insulin syringes. He has been instructed to pick these up at [facility]. He has been instructed to strip picker glucometer, lancets and strips at [facility] or [facility] to purchase himself. He has a RX for vial of regular insulin. Discharging home today. DCP- Discharge Planning Updated by [id number]: Andreina Acosta on 01/11/20 1:[address] PATIENT DISCHARGING HOME TODAY, NO NEEDS IDENTIFIED DCP- Discharge Planning Updated by [id number]: Fern Teresa on 01/04/20 1:[address] Patient Name: SOCORRO CHRISTENSEN Admission Status: ER Accout number: [id number] Admission Date: 12-31-2019 : 1980 Admission Diagnosis: Attending: SHAWN HASSAN Current LOS: 4 Anticipated DC Date: Planned Disposition: Home Primary Insurance: UNINSURED DISCOUNT PLAN Discharge Planning Comments: CM MET WITH PATIENT AFTER OBTAINING VERBAL CONSENT. PATIENT SPEAKS VERY LITTLE OCCITAN, SON IS AT THE BEDSIDE AND CAN TRANSLATE. PATIENT PLANS TO DC TO HOME WITH FAMILY WHEN MEDICALLY STABLE. WAITING FOR TRANSFER TO THE FLOOR. I LEFT [facility] WITH [facility] DATA TO HELP GET PATIENT MEDICAID. CM TO FOLLOW AND ASSIST. I AM GIVING THE SON AN EXCUSE FOR SCHOOL. Rn Surgical Pcu: Fern Teresa DCPIA - Discharge Planning Initial Assessment Updated by [id number]: Fern Teresa on 01/04/20 2:16 pm * Is the patient Alert and Oriented? Yes * PCP [facility] * Pharmacy [facility] * Preadmission Environment Home with Family * ADLs Independent * Additional services required to return to the preadmission environment? No * Can the patient safely return to the preadmission environment? Yes * Has this patient been hospitalized within the prior 30 days at any hospital? No Last DP export: 01/11/20 2:05 p Patient Name: SOCORRO CHRISTENSEN Page [id number] at 1653 All edits/amendments must be made on the electronic document DICTATION DATE: 01/15/201653 LICENSED OPTICIAN: HAM 01/15/201653 RPT#: [id number] DC DATE: STATUS: ADM IN [facility] [address] [place] [address] END OF REPORT
--- NOTE | 2020-01-15 17:04 | NUR ---
DISCHARGE EDUCATION PROVIDED BOTH WRITTEN AND VERBAL. VERBALIZED UNDERSTANDING. DENIES FURTHER QUESTIONS. AT BEDSIDE DENIES QUESTIONS. IV REMOVED FROM LEFT AC WITH TIP INTACT. BOTTLE OF INSULIN GIVEN TO PATIENT FOR DISCHARGE. PATIENT DISCHARGED HOME WITH WITH ALL BELOGINGS.
--- NOTE | 2020-01-16 09:13 | MORECARE ---
CASE MANAGEMENT DISCHARGE SUMMARY PATIENT: SOCORRO CHRISTENSEN UNIT: [id number] ADM DATE: 12/31/19 AGE: 39 : 78 SEX: M ROOM/BED: D.2216 AUTHOR: BLAIR ROME PHYSICIAN: REFERRING PHYSICIAN: SHAWN CALVIN MD DATE OF SERVICE: 01/16/20 Discharge Plan Patient Name: SOCORRO CHRISTENSEN Facility: [facility]:[place] : 1980 Planned Disposition: Home Anticipated Discharge Date: Discharge Date: 01/15/2020 Expected LOS: Initial Reviewer: [email or web address] Initial Review Date: 01/04/2020 Generated: 01/16/20 10:13 am Comments DCP- Discharge Planning Updated by [email or web address]: Caren Xavier on 01/15/20 3:[address] Patient is being discharged now. I have called [facility] and they will provide at the family preservation caseworker expense Doxycycline 100mg PO BID for 10 days (17.29), Z - pack (12.99), Tamiflu 75mg po BID X 4 days (40.41), and insulin syringes. He has been instructed to pick these up at [facility]. He has been instructed to grape picker glucometer, lancets and strips at [facility] or [facility] to purchase himself. He has a RX for vial of regular insulin. Discharging home today. DCP- Discharge Planning Updated by [id number]: Andreina Acosta on 01/11/20 1:[address] PATIENT DISCHARGING HOME TODAY, NO NEEDS IDENTIFIED DCP- Discharge Planning Updated by [id number]: Fern Teresa on 01/04/20 1:[address] Patient Name: SOCORRO CHRISTENSEN Admission Status: ER Accout number: [id number] Admission Date: 12-31-2019 : 1980 Admission Diagnosis: Attending: SHAWN HASSAN Current LOS: 4 Anticipated DC Date: Planned Disposition: Home Primary Insurance: UNINSURED DISCOUNT PLAN Discharge Planning Comments: CM MET WITH PATIENT AFTER OBTAINING VERBAL CONSENT. PATIENT SPEAKS VERY LITTLE MONTSERRATIAN, SON IS AT THE BEDSIDE AND CAN TRANSLATE. PATIENT PLANS TO DC TO HOME WITH FAMILY WHEN MEDICALLY STABLE. WAITING FOR TRANSFER TO THE FLOOR. I LEFT [facility] WITH [facility] DATA TO HELP GET PATIENT MEDICAID. CM TO FOLLOW AND ASSIST. I AM GIVING THE SON AN EXCUSE FOR SCHOOL. Skatesman: Fern Brii DCPIA - Discharge Planning Initial Assessment Updated by [email or web address]: Ferneder Teresa on 01/04/20 2:16 pm * Is the patient Alert and Oriented? Yes * PCP [facility] * Pharmacy [facility] * Preadmission Environment Home with Family * ADLs Independent * Additional services required to return to the preadmission environment? No * Can the patient safely return to the preadmission environment? Yes * Has this patient been hospitalized within the prior 30 days at any hospital? No Last DP export: 01/15/20 3:55 p Patient Name: SOCORRO CHRISTENSEN Page 24697 at 0913 All edits/amendments must be made on the electronic document DICTATION DATE: 01/16/20912 ELECTRICAL PROSPECTING OBSERVER: HAM 01/16/20912 RPT#: [id number] DC DATE:01/15/20 STATUS: DIS IN [facility] [address] [place] [address] END OF REPORT
== END 2020-01-15 19:17 | disposition home or self-care (01) | DRG 417 ==
LOC: D.ER 17:30 → D.CVICU 23:03 → D.WS 23:03 → D.M2 23:03 → D.MS 23:03 → D.CVICU 01-01 21:43 → D.WS 01-05 17:58 → D.MS 01-08 18:25
PROVIDERS: Family Medicine; Internal Medicine Gastroenterology; Internal Medicine Nephrology; Surgery; ADMIT Family Medicine Adult Medicine; ATTEND Family Medicine Adult Medicine
PROC: BF101ZZ Fluoroscopy of Bile Ducts using Low Osmolar Contrast (ICD-10-PCS; 2020-01-08)
PROC: 0FT44ZZ Resection of Gallbladder, Percutaneous Endoscopic Approach (ICD-10-PCS; principal; 2020-01-08 07:30)
DX: K85.10 Biliary acute pancreatitis without necrosis or infection (principal); J18.1 Lobar pneumonia, unspecified organism; E43 Unspecified severe protein-calorie malnutrition; R17 Unspecified jaundice; N39.0 Urinary tract infection, site not specified; E78.1 Pure hyperglyceridemia; E11.65 Type 2 diabetes mellitus with hyperglycemia; E78.5 Hyperlipidemia, unspecified; R00.0 Tachycardia, unspecified; E83.51 Hypocalcemia; E83.42 Hypomagnesemia; E83.39 Other disorders of phosphorus metabolism

== ENCOUNTER 2020-01-27 14:47 | Inpatient (IN) | payer MEDICAID ==
[~2020-01-27] VITALS: Ht 177.8 cm; Wt 91.6 kg
[~2020-01-27 14:47] MED LIST: INSULINSYR&NEEDLES SC; TAMIFLU75 MG PO; VIBRAMYCIN 100100 MG PO; ZPAK PO
[2020-01-27 15:54] LABS: BASOPHILS 0.3 % (0-2); EOSINOPHILS 1.5 % (0-7); HEMATOCRIT 32.4 % (42.0-54.0); HEMOGLOBIN 10.2 g/dL (13.5-17.5); IMMATURE GRANULOCYTES 0.8 % (0-5); LYMPHOCYTES 40.3 % (15-50); MCH 26.8 pg (26.0-34.0); MCHC 31.5 g/dL (31.0-37.0); MEAN PLATELET VOLUME 8.4 fL (7.4-10.4); MONOCYTES 5.3 % (2-11); NEUTROPHILS 51.8 % (40-80); RBC 3.81 10x6/uL (4.20-6.10); WBC 6.6 10x3/uL (4.8-10.8)
[2020-01-27 15:56] LABS: PLATELET COUNT 274 10x3/uL (130-400)
[2020-01-27 16:13] LABS: INR 1.07 (0.85-1.17); PROTIME 13.9 SECONDS (11.6-15.0)
[2020-01-27 16:37] VITALS: BP 116/75
[2020-01-27 16:53] LABS: ALKALINE PHOSPHATASE 146 U/L (30-120); ALT (SGPT) 63 U/L (10-68); BILIRUBIN - TOTAL 1.04 mg/dL (0.2-1.3); CALCIUM 9.2 mg/dL (8.5-10.1); CARBON DIOXIDE 25.8 mmol/L (21.0-32.0); CHLORIDE - SERUM 104 mmol/L (98-107); CKMB 0.1 U/L (0.0-3.6); CREATINE KINASE 23 UL (21-232); CREATININE - SERUM 0.8 mg/dL (0.6-1.3); MAGNESIUM - SERUM 1.9 mg/dL (1.8-2.4); PROTEIN - SERUM 7.9 g/dL (6.4-8.2); SODIUM 139 mmol/L (136-145); eGFR NON AFRICAN AMERICAN > 90 mL/min (90-120)
[2020-01-27 17:02] LABS: CALC OSMOLALITY 280 mosm/kg (275-300); GLUCOSE 112 mg/dL (74-106); TROPONIN-I < 0.017 ng/mL (0.000-0.060); UREA NITROGEN 17 mg/dL (7-18)
--- NOTE | 2020-01-27 18:19 | NUR ---
PT RESTING IN BED. NO SIGNS OF DISTRESS. IV TO LEFT WRIST PATENT NO REDNESS OR TENDERNESS. DENIES ANY FURTHER NEED AT THIS TIME. CALL LIGHT IN REACH. BED LOW POSITION. FAMILY AT BEDSIDE AT THIS TIME.
[2020-01-27] MEDS ORDERED: HUMULIN R100 UNIT/1 SC (18:22)
[2020-01-27 20:00] VITALS: BP 110/73
[2020-01-27 22:05] VITALS: BP 117/76; BMI 29.0
--- NOTE | 2020-01-27 22:30 | NUR ---
RESTING IN BED DENIES PAIN OR NEEDS AT THSI TIME SEE ADMISSION ASSESSMNET, CALL LIGHT IN REACH
[2020-01-28] VITALS: BP 104/60
[2020-01-28 04:00] VITALS: BP 102/70
[2020-01-28 06:44] LABS: BASOPHILS 0.4 % (0-2); HEMATOCRIT 30.6 % (42.0-54.0); HEMOGLOBIN 9.6 g/dL (13.5-17.5); IMMATURE GRANULOCYTES 0.5 % (0-5); LYMPHOCYTES 45.1 % (15-50); MCH 26.7 pg (26.0-34.0); MCHC 31.4 g/dL (31.0-37.0); MCV 85.2 fL (80.0-100.0); MEAN PLATELET VOLUME 8.3 fL (7.4-10.4); MONOCYTES 6.9 % (2-11); NEUTROPHILS 45.1 % (40-80); PLATELET COUNT 281 10x3/uL (130-400); RBC 3.59 10x6/uL (4.20-6.10); RDW 15.4 % (11.5-14.5); WBC 5.5 10x3/uL (4.8-10.8)
--- NOTE | 2020-01-28 07:20 | NUR ---
PT RESTING IN BED WITH FAMILY AT BEDSIDE. GREETS STAFF APPROPRIATELY. PT DENIES PAIN AT THIS TIME. HE DOES VOICE PAIN WITH AMBULATION IN RIGHT LOWER EXTREMITY. SALINE LOC TO LEFT WRIST INTACT. SITE WITHOUT REDNESS OR EDEMA. PT DENIES FURTHER NEEDS AT THIS TIME. CL WITHIN REACH. ENCOURAGED TO CALL WITH NEEDS. CONTINUE POC
[2020-01-28 07:24] LABS: ALBUMIN 2.8 g/dL (3.4-5.0); ALKALINE PHOSPHATASE 143 U/L (30-120); ALT (SGPT) 59 U/L (10-68); BILIRUBIN - TOTAL 0.97 mg/dL (0.2-1.3); CALC OSMOLALITY 281 mosm/kg (275-300); CALCIUM 8.4 mg/dL (8.5-10.1); CARBON DIOXIDE 24.9 mmol/L (21.0-32.0); CHLORIDE - SERUM 105 mmol/L (98-107); CREATININE - SERUM 0.8 mg/dL (0.6-1.3); GLUCOSE 115 mg/dL (74-106); MAGNESIUM - SERUM 1.9 mg/dL (1.8-2.4); POTASSIUM - SERUM 3.8 mmol/L (3.5-5.1); PROTEIN - SERUM 6.8 g/dL (6.4-8.2); SODIUM 140 mmol/L (136-145); UREA NITROGEN 18 mg/dL (7-18); eGFR NON AFRICAN AMERICAN > 90 mL/min (90-120)
[2020-01-28 09:03] VITALS: BP 103/67
--- NOTE | 2020-01-28 10:10 | NUR ---
20 G SALINE LOC SITED TO LEFT HAND. GOOD BLOOD RETURN, EASILY FLUSHED WITH SALINE. PT OSVALDO WELL.
[2020-01-28 12:10] VITALS: BP 104/57
[2020-01-28 14:00] VITALS: Ht 177.8 cm; Wt 91.6 kg
--- NOTE | 2020-01-28 15:18 | MORECARE ---
CASE MANAGEMENT DISCHARGE SUMMARY PATIENT: SOCORRO CHRISTENSEN UNIT: [id number] ADM DATE: 01/27/20 AGE: 39 : 78 SEX: M ROOM/BED: D.2223 AUTHOR: BLAIR ROME PHYSICIAN: REFERRING PHYSICIAN: KENDY VALENTINO MD DATE OF SERVICE: 01/28/20 Discharge Plan Patient Name: SOCORRO CHRISTENSEN Facility: [facility]:[place] : 1980 Planned Disposition: Home Anticipated Discharge Date: Discharge Date: Expected LOS: Initial Reviewer: [email or web address] Initial Review Date: 01/28/2020 Generated: 01/28/20 4:17 pm Patient Name: SOCORRO CHRISTENSEN Page 43764 at 1518 All edits/amendments must be made on the electronic document DICTATION DATE: 01/28/201516 DOCUMENT CONTROL SPECIALIST: HAM 01/28/201516 RPT#: [id number] DC DATE: STATUS: ADM IN [facility] [address] [place] [address] END OF REPORT
--- NOTE | 2020-01-28 15:28 | MORECARE ---
CASE MANAGEMENT DISCHARGE SUMMARY PATIENT: SOCORRO LAL UNIT: [id number] ADM DATE: 01/27/20 AGE: 39 : 78 SEX: M ROOM/BED: D.2223 AUTHOR: BLAIR ROME PHYSICIAN: REFERRING PHYSICIAN: KENDY VALENTINO MD DATE OF SERVICE: 01/28/20 Discharge Plan Patient Name: SOCORRO LAL [facility] [facility] 1980 Planned Disposition: Home Anticipated Discharge Date: Discharge Date: Expected LOS: Initial Reviewer: [email or web address] Initial Review Date: 01/28/2020 Generated: 01/28/20 4:27 pm DCPIA - Discharge Planning Initial Assessment Updated by [email or web address]: Caren Xavier on 01/28/20 3:21 pm * Is the patient Alert and Oriented? Yes * PCP [facility] * Pharmacy [facility] in [place] * Preadmission Environment Home with Family * ADLs Independent * Equipment Glucometer * List name and contact numbers for known caregivers / representatives who currently or will assist patient after discharge: Nicky - Beni Lal - spouse - [phone] Laura - friend (Uzbek speaking) - [phone] * Verbal permission to speak to the caregivers and representatives has been obtained from the patient. Yes * Community resources currently utilized None * Additional services required to return to the preadmission environment? No * Can the patient safely return to the preadmission environment? Yes * Has this patient been hospitalized within the prior 30 days at any hospital? Yes Last DP export: 01/28/20 2:18 pm Patient Name: SOCORRO LAL Page 60996 at 1528 All edits/amendments must be made on the electronic document DICTATION DATE: 01/28/201526 INSPECTOR PLATING: HAM 01/28/201526 RPT#: [id number] DC DATE: STATUS: ADM IN [facility] [address] [place] [address] END OF REPORT
--- NOTE | 2020-01-28 15:36 | MORECARE ---
CASE MANAGEMENT DISCHARGE SUMMARY PATIENT: SOCORRO LAL UNIT: [id number] ADM DATE: 01/27/20 AGE: 39 : 78 SEX: M ROOM/BED: D.2223 AUTHOR: WILD,DOC PHYSICIAN: REFERRING PHYSICIAN: KENDY VALENTINO MD DATE OF SERVICE: 01/28/20 Discharge Plan Patient Name: SOCORRO LAL Facility: [facility]:[place] : 1980 Planned Disposition: Home Anticipated Discharge Date: Discharge Date: Expected LOS: Initial Reviewer: [email or web address] Initial Review Date: 01/28/2020 Generated: 01/28/20 4:36 pm Comments DCP- Discharge Planning Updated by [email or web address]: Caren Xavier on 01/28/20 2:[address] Patient Name: SOCORRO LAL Admission Status: Elective Accout number: [id number] Admission Date: 01-27-2020 : 1980 Admission Diagnosis: Attending: KENDY CHAUDHRY Current LOS: 1 Anticipated DC Date: Planned Disposition: Home Primary Insurance: MEDICAID [place] PENDING Discharge Planning Comments: CM met with patient and his in the room to discuss discharge planning/needs. Patient's called their friend, Elsa, to speak with me since they speak very little Jordanian. Patient lives with his spouse and family and plans to return home when medically stable. He states that he does have a glucometer and has been checking his blood sugar twice a day. States that he no longer has had to take any insulin. I believe he states he is getting crutches from somewhere in [place]. I informed him he could check the [employer] [facility] if needed. He will need a coupon for his anticoagulant on discharge, his Medicaid is still pending at this time. CM will continue to follow and assist with discharge planning/needs. Assurance Senior: Caren Xavier DCPIA - Discharge Planning Initial Assessment Updated by [email or web address]: Caren Xavier on 01/28/20 3:21 pm * Is the patient Alert and Oriented? Yes * [facility] * Pharmacy [facility] in [place] * Preadmission Environment Home with Family * ADLs Independent * Equipment Glucometer * List name and contact numbers for known caregivers / representatives who currently or will assist patient after discharge: Nicky Lal - spouse - [phone] Laura - friend (Jordanian speaking) - [phone] * Verbal permission to speak to the caregivers and representatives has been obtained from the patient. Yes * Community resources currently utilized None * Additional services required to return to the preadmission environment? No * Can the patient safely return to the preadmission environment? Yes * Has this patient been hospitalized within the prior 30 days at any hospital? Yes Last DP export: 01/28/20 2:28 pm Patient Name: SOCORRO LAL Page 48255 at 1536 All edits/amendments must be made on the electronic document DICTATION DATE: 01/28/20 153 STAKE SETTER: HAM 01/28/201535 RPT#: [id number] DC DATE: STATUS: ADM IN [facility] [address] [place] [address] END OF REPORT
[2020-01-28 17:24] VITALS: BP 109/72
[2020-01-28 20:00] VITALS: BP 105/67
[2020-01-29] VITALS: BP 106/74
[2020-01-29 04:00] VITALS: BP 109/69
[2020-01-29 04:51] LABS: BASOPHILS 0.4 % (0-2); EOSINOPHILS 2.3 % (0-7); HEMATOCRIT 29.4 % (42.0-54.0); HEMOGLOBIN 9.3 g/dL (13.5-17.5); IMMATURE GRANULOCYTES 0.8 % (0-5); LYMPHOCYTES 45.8 % (15-50); MCHC 31.6 g/dL (31.0-37.0); MCV 85.5 fL (80.0-100.0); MEAN PLATELET VOLUME 8.3 fL (7.4-10.4); MONOCYTES 7.3 % (2-11); NEUTROPHILS 43.4 % (40-80); PLATELET COUNT 287 10x3/uL (130-400); RBC 3.44 10x6/uL (4.20-6.10); RDW 15.4 % (11.5-14.5); WBC 5.2 10x3/uL (4.8-10.8)
[2020-01-29 05:00] LABS: ALBUMIN 2.6 g/dL (3.4-5.0); ALKALINE PHOSPHATASE 129 U/L (30-120); ALT (SGPT) 55 U/L (10-68); BILIRUBIN - TOTAL 0.76 mg/dL (0.2-1.3); CALC OSMOLALITY 283 mosm/kg (275-300); CALCIUM 8.3 mg/dL (8.5-10.1); CARBON DIOXIDE 23.9 mmol/L (21.0-32.0); CHLORIDE - SERUM 107 mmol/L (98-107); CREATININE - SERUM 0.8 mg/dL (0.6-1.3); GLUCOSE 123 mg/dL (74-106); MAGNESIUM - SERUM 1.9 mg/dL (1.8-2.4); POTASSIUM - SERUM 3.7 mmol/L (3.5-5.1); PROTEIN - SERUM 6.9 g/dL (6.4-8.2); SODIUM 141 mmol/L (136-145); UREA NITROGEN 18 mg/dL (7-18); eGFR NON AFRICAN AMERICAN > 90 mL/min (90-120)
[2020-01-29 08:44] VITALS: BP 109/72
--- NOTE | 2020-01-29 09:00 | NUR ---
ASSESSMENT PER FLOW SHEET. PATIENT IS WITHOUT DISTRESS.CALL LIGHT IN REACH
[2020-01-29] MEDS ORDERED: ELIQUIS5 MG PO ×2 (11:09→11:28)
[2020-01-29 12:09] LABS: ACLA - IGG AB <9 GPL U/mL (0-14); ACLA - IGM AB <9 MPL U/mL (0-12)
--- NOTE | 2020-01-29 13:33 | NUR ---
DISCHARGE INSTRUCTIONS WITH PATIENT AND FAMILY,STATES UNDERSTANDING. IV DCD WITH CATH TIP INTACT X2. WAITING ON RIDE HOME
--- NOTE | 2020-01-29 13:59 | MORECARE ---
CASE MANAGEMENT DISCHARGE SUMMARY PATIENT: SOCORRO LAL UNIT: [id number] ADM DATE: 01/27/20 AGE: 39 : 78 SEX: M ROOM/BED: D.2223 AUTHOR: BLAIR ROME PHYSICIAN: REFERRING PHYSICIAN: KENDY VALENTINO MD DATE OF SERVICE: 01/29/20 Discharge Plan Patient Name: SOCORRO LAL Facility: [facility]:[place] : 1980 Planned Disposition: Home Anticipated Discharge Date: Discharge Date: Expected LOS: Initial Reviewer: [email or web address] Initial Review Date: 01/28/2020 Generated: 01/29/20 2:58 pm Comments DCP- Discharge Planning Updated by [email or web address]: Caren Duc on 01/29/20 12:[address] Discharge [id number] received. I called patient's pharmacy and spoke with the pharmacist, and he will be able to use the free 30 day coupon for Eliquis, which will give him [address] Frazier's office and was able to get 14 tablets from her office of the 5mg tablet. He will have a one month's supply. He will be able to use his Medicaid for further Eliquis. The nurse. Tete, will use the language line to explain his prescription on discharge. Discharging home with family. DCP- Discharge Planning Updated by [email or web address]: Caren Xavier on 01/28/20 2:[address] Patient Name: SOCORRO LAL Admission Status: Elective Accout number: [id number] Admission Date: 01-27-2020 : 1980 Admission Diagnosis: Attending: KENDY CHAUDHRY Current LOS: 1 Anticipated DC Date: Planned Disposition: Home Primary Insurance: MEDICAID [place] PEND[place] Discharge Planning Comments: CM met with patient and his in the room to discuss discharge planning/needs. Patient's called their friend, Elsa, to speak with me since they speak very little French. Patient lives with his spouse and family and plans to return home when medically stable. He states that he does have a glucometer and has been checking his blood sugar twice a day. States that he no longer has had to take any insulin. I believe he states he is getting crutches from somewhere in [place]. I informed him he could check the [facility] if needed. He will need a coupon for his anticoagulant on discharge, his Medicaid is still pending at this time. CM will continue to follow and assist with discharge planning/needs. Band Tacker: Caren Perezjigar DCPIA - Discharge Planning Initial Assessment Updated by [email or web address]: Caren Xavier on 01/28/20 3:21 pm * Is the patient Alert and Oriented? Yes * [facility] * Pharmacy [facility] in [place] * Preadmission Environment Home with Family * ADLs Independent * Equipment Glucometer * List name and contact numbers for known caregivers / representatives who currently or will assist patient after discharge: Nicky Lal - spouse - [phone] Laura - friend (French speaking) - [phone] * Verbal permission to speak to the caregivers and representatives has been obtained from the patient. Yes * Community resources currently utilized None * Additional services required to return to the preadmission environment? No * Can the patient safely return to the preadmission environment? Yes * Has this patient been hospitalized within the prior 30 days at any hospital? Yes Last DP export: 01/28/20 2:36 pm Patient Name: SOCORRO LAL Page 72858 at 1359 All edits/amendments must be made on the electronic document DICTATION DATE: 01/29/20 1358 LANG PATH THERAPIST: HAM 01/29/20 1358 RPT#: [id number] DC DATE: STATUS: ADM IN [facility] [address] [place] [address] END OF REPORT
--- NOTE | 2020-01-29 14:20 | NUR ---
LEFT UNIT VIA WHEELCHAIR FOR TRANSPORT HOME
[2020-01-29 14:24] VITALS: BP 109/69
[2020-01-30 09:10] LABS: LUPUS - INTERPRETATION Comment: (()); LUPUS - THROMBIN TIME 16.5 sec (0.0-23.0); LUPUS - dRVVT 35.3 sec (0.0-47.0); PTT-LA 39.4 sec (0.0-51.9)
[2020-02-02 18:08] LABS: FACTOR II DNA ANALYSIS Negative (())
--- NOTE | 2020-02-03 06:52 | MORECARE ---
CASE MANAGEMENT DISCHARGE SUMMARY PATIENT: SOCORRO LAL UNIT: [id number] ADM DATE: 01/27/20 AGE: 39 : 78 SEX: M ROOM/BED: D.2223 AUTHOR: BLAIR ROME PHYSICIAN: REFERRING PHYSICIAN: KENDY VALENTINO MD DATE OF SERVICE: 02/03/20 Discharge Plan Patient Name: SOCORRO LAL Facility: [facility]:[place] : 1980 Planned Disposition: Home Anticipated Discharge Date: Discharge Date: 01/29/2020 Expected LOS: 0 Initial Reviewer: [email or web address] Initial Review Date: 01/28/2020 Generated: 02/03/20 7:51 am Comments DCP- Discharge Planning Updated by [email or web address]: Caren Xavier on 01/29/20 11:[address] Discharge [id number] received. I called patient's pharmacy and spoke with the pharmacist, and he will be able to use the free 30 day coupon for Eliquis, which will give him [address] Frazier's office and was able to get 14 tablets from her office of the 5mg tablet. He will have a one month's supply. He will be able to use his Medicaid for further Eliquis. The nurse. Tete, will use the language line to explain his prescription on discharge. Discharging home with family. DCP- Discharge Planning Updated by [email or web address]: Caren Perezjigar on 01/28/20 1:[address] Patient Name: SOCORRO LAL Admission Status: Elective Accout number: [id number] Admission Date: 01-27-2020 : 1980 Admission Diagnosis: Attending: KENDY CHAUDHRY Current LOS: 1 Anticipated DC Date: Planned Disposition: Home Primary Insurance: MEDICAID [place] PENDING Discharge Planning Comments: CM met with patient and his in the room to discuss discharge planning/needs. Patient's called their friend, Elsa, to speak with me since they speak very little Korean. Patient lives with his spouse and family and plans to return home when medically stable. He states that he does have a glucometer and has been checking his blood sugar twice a day. States that he no longer has had to take any insulin. I believe he states he is getting crutches from somewhere in [place]. I informed him he could check the [facility] [place] [employer] [facility] if needed. He will need a coupon for his anticoagulant on discharge, his Medicaid is still pending at this time. CM will continue to follow and assist with discharge planning/needs. Nuclear Engineer: Caren Xavier DCPIA - Discharge Planning Initial Assessment Updated by [email or web address]: Caren Xavier on 01/28/20 3:21 pm * Is the patient Alert and Oriented? Yes * PCP [facility] * Pharmacy [facility] in [place] * Preadmission Environment Home with Family * ADLs Independent * Equipment Glucometer * List name and contact numbers for known caregivers / representatives who currently or will assist patient after discharge: Nicky Lal - spouse - [phone] Laura - friend (Korean speaking) - [phone] * Verbal permission to speak to the caregivers and representatives has been obtained from the patient. Yes * Community resources currently utilized None * Additional services required to return to the preadmission environment? No * Can the patient safely return to the preadmission environment? Yes * Has this patient been hospitalized within the prior 30 days at any hospital? Yes Last DP export: 01/29/20 11:59 am Patient Name: SOCORRO LAL Page 16498 at 0652 All edits/amendments must be made on the electronic document DICTATION DATE: 02/03/20650 LEAD RECREATION ASSISTANT: HAM 02/03/2051 RPT#: [id number] DC DATE:01/29/20 STATUS: DIS IN [facility] [address] [place] [address] END OF REPORT
== END 2020-01-29 14:20 | disposition home or self-care (01) | DRG 301 ==
LOC: D.ER 14:47 → D.MS 16:00
PROVIDERS: Emergency Medicine; Internal Medicine Hematology & Oncology; ADMIT Family Medicine; ATTEND Family Medicine
DX: I82.411 Acute embolism and thrombosis of right femoral vein (principal); D64.9 Anemia, unspecified; E11.65 Type 2 diabetes mellitus with hyperglycemia